=== PATIENT | male | born 1960 | race Caucasian/White ===

== ENCOUNTER 2017-06-10 13:34 | Inpatient (IN) | payer MEDICARE, OTHER ==
[~2017-06-10] VITALS: Ht 175.3 cm; Wt 119.9 kg
[2017-06-10] MEDS ORDERED: LEVO75TA7 PO (13:59)
[2017-06-10] MEDS ORDERED: MIRT15TA PO (13:59)
[2017-06-10] MEDS ORDERED: INSU100V7 SQ (13:59)
[2017-06-10] MEDS ORDERED: PANT40TA2 PO (13:59)
[2017-06-10] MEDS ORDERED: INSU100C (13:59)
[2017-06-10] MEDS ORDERED: DICL100G16 TP (14:00)
[2017-06-10] MEDS ORDERED: SEVE800T8 PO (14:00)
[2017-06-10] MEDS ORDERED: ALBU8HFA4 INH (14:00)
[2017-06-10] MEDS ORDERED: TRAM50TA2 PO (14:00)
[2017-06-10] MEDS ORDERED: SITA50TA PO (14:00)
[2017-06-10] MEDS ORDERED: ZOLP5TAB2 PO (14:00)
[2017-06-10] MEDS ORDERED: REPA1TAB6 PO (14:00)
[2017-06-10] MEDS ORDERED: OXYC10TA49 PO (14:00)
[2017-06-10] MEDS ORDERED: SIMV10TA6 PO (14:00)
[2017-06-10] MEDS ORDERED: FLUT16SP2 (14:00)
[2017-06-10] MEDS ORDERED: NITR0.4T48 SL (14:00)
[2017-06-10] MEDS ORDERED: LORA10CA PO (14:00)
[2017-06-10] MEDS ORDERED: ACET-2605 PO (14:01)
[2017-06-10] MEDS ORDERED: GABA-534 PO (14:01)
[2017-06-10] MEDS ORDERED: METH4TAB PO (14:01)
--- NOTE | 2017-06-10 14:25 | NUR ---
Pt c/o n/v/d for 3 days and ABD pain starting in upper midline and spreading throughout ABD, [id number]. Also c/o slight dizziness after moving bowels. Pt denies CP, SOB, dizziness, no other complaints, no distress noted.
[2017-06-10] MEDS ORDERED: ONDANSETRON 4 MG/2 ML VIAL IV ONE (14:30)
[2017-06-10] MEDS ORDERED: HYDROMORPHONE 1 MG/1 ML DISP.SYRIN IV ONE (14:30)
[2017-06-10] MEDS ORDERED: IV NORMAL SALINE 1000 ML BAG IV ONE (14:30)
[2017-06-10 14:49] LABS: BASOPHILS % (AUTO) 0.6 % (0.0-2.0); EOSINOPHILS # (AUTO) 0.1 K/uL (0.0-0.7); EOSINOPHILS % (AUTO) 1.2 % (0.0-7.0); HEMATOCRIT 43.6 % (40-50); LYMPHOCYTES # (AUTO) 1.5 K/UL (0.8-4.8); LYMPHOCYTES % (AUTO) 26.3 % (20.5-51.5); MEAN CORPUSCULAR HEMOGLOBIN 30.2 UUG (27.0-31.0); MEAN CORPUSCULAR HGB CONC 32 g/dL (32.0-37.0); MEAN CORPUSCULAR VOLUME 93.8 FL (82.0-92.0); MONOCYTES # (AUTO) 0.7 K/UL (0.1-1.30); MONOCYTES % (AUTO) 13.4 % (0.0-11.0); NEUTROPHILS # (AUTO) 3.3 K/UL (1.8-8.9); NEUTROPHILS % (AUTO) 58.5 % (38.5-71.5); PLATELET COUNT (AUTO) 158 K/UL (150-450); RED BLOOD CELL COUNT(AUTO) 4.65 MIL/UL (4.7-6.1); WHITE BLOOD COUNT (AUTO) 5.6 K/UL (4.0-11.2)
[2017-06-10 14:54] LABS: CREATININE 6.1 mg/dL (0.6-1.3); POTASSIUM 4.6 mmol/L (3.5-5.1)
[2017-06-10 15:00] LABS: BILIRUBIN,DIRECT 0.2 mg/dL (0.0-0.2); BILIRUBIN,TOTAL 0.5 mg/dL (0.2-1.0); TOTAL PROTEIN, SERUM 9.1 g/dL (6.4-8.2)
[2017-06-10] MEDS ORDERED: HYDROMORPHONE 1 MG/1 ML DISP.SYRIN ONE (15:11)
[2017-06-10] MEDS ORDERED: ONDANSETRON 4 MG/2 ML VIAL ONE (15:12)
--- NOTE | 2017-06-10 16:27 | NUR ---
Gave report to LUCHO Escobedo. Pt going to CCU bed 2.
--- NOTE | 2017-06-10 16:28 | NUR ---
Full telephone SBAR report received by AUDIO ENGINEERLUCHO Avelar.
--- NOTE | 2017-06-10 17:20 | NUR ---
Pt received from ER awake and alert via pt's motorized wheelchair. Pt stable and nad noted upon admission.
[2017-06-10 17:49] VITALS: BP 73/46
--- NOTE | 2017-06-10 17:55 | NUR ---
Spoke with Dr. Gamez on the telephone. Meds reconciled and reviewed with MD and new admission orders received.
--- NOTE | 2017-06-10 18:10 | NUR ---
Dr. Bianchi in to meet with pt's girlfriend and DPOA as well as with pt's step-sister. Family updated on pt's repeated CT to abdomen and as well as of care plan. Addendum: 06/10/17 at 1821 by ELYSE MEIER RN the above note is meant for another patient. User error.
[2017-06-10] MEDS ORDERED: IV NORMAL SALINE 500 ML IV ONE (18:15)
--- NOTE | 2017-06-10 18:41 | NUR ---
End of shift: Pt resting in bed awake and alert with fall precautions and safety measures maintained. bus driver/monitor and alarms working properly wnl. Call monk within reach and all needs attended.
[2017-06-10] MEDS ORDERED: NITROGLYCERIN 0.4 MG/TAB BOTTLE SL SCH (19:00)
[2017-06-10] MEDS ORDERED: IV NORMAL SALINE 250 ML IV ONE (19:00)
[2017-06-10] MEDS ORDERED: ALBUTEROL SULFATE 8 GM HFA.AER.AD INH SCH (19:00)
[2017-06-10] MEDS ORDERED: ACETAMINOPHEN ES 500 MG TABLET PO SCH (19:00)
[2017-06-10] MEDS: TRAMADOL HCL 50 MG TABLET PO SCH (19:00)
[2017-06-10] MEDS ORDERED: DEXTROSE 50% 50 ML DISP.SYRIN IV PRN (19:30)
--- NOTE | 2017-06-10 19:30 | NUR ---
Report received. Patient AAO, c/o abdominal pain. Assessment done. Home medications discussed with Pharmacist La Nena. Addendum: 06/11/17 at 0021 by REEMA DURAN RN Amended: Links added.
[2017-06-10 20:00] VITALS: BP 101/69
--- NOTE | 2017-06-10 20:00 | NUR ---
Spoke to Dr. Gamez re: patient's abdominal pain and home medications; orders received.
[2017-06-10] MEDS: HYDROMORPHONE 1 MG/1 ML DISP.SYRIN IV PRN (20:18)
--- NOTE | 2017-06-10 20:18 | NUR ---
Medicated with Dialudid IV. Up to BSC with assist. Had loose brown BM; stool specimen obtained for C. diff.
--- NOTE | 2017-06-10 20:20 | NUR ---
Ultram not given; patient was having abdominal pain. for CT of abdomen. CXR tech made aware of order.
[2017-06-10] MEDS: BLOOD SUGAR DIAGNOSTIC 1 EACH STRIP VI SCH (20:46)
--- NOTE | 2017-06-10 20:48 | NUR ---
Albinoaudid effective. Addendum: 06/11/17 at 0048 by REEMA DURAN RN Amended: Links added.
[2017-06-10 21:00] VITALS: BP 113/59
[2017-06-10] MEDS: INSULIN REGULAR, HUMAN 300 UNIT/3 ML VIAL SQ PRN (21:15)
[2017-06-10] MEDS: INSULIN DETEMIR 300 UNIT/3 ML CARTRIDGE SQ SCH (21:15)
--- NOTE | 2017-06-10 21:15 | NUR ---
Had another liquid BM. Placed on contact isolation for C. diff.
[2017-06-10] MEDS: MIRTAZAPINE 15 MG TABLET PO SCH (21:18)
[2017-06-10] MEDS: SIMVASTATIN 10 MG TABLET PO SCH (21:18)
--- NOTE | 2017-06-10 21:30 | NUR ---
Blood drawn for Troponin. Was not drawn at 1800 as lab support tech had difficulty obtaining sample.
--- NOTE | 2017-06-10 21:55 | NUR ---
Results of abnormal Troponin called to Dr. Gamez. Next troponin will be in am. Also advised RN not to call for CT result and that it can be read tomorrow. Tech informed. Addendum: 06/11/17 at 0053 by REEMA DURAN RN Amended: Links added.
[2017-06-10 22:00] VITALS: BP 114/60
--- NOTE | 2017-06-10 22:00 | NUR ---
To CT per bed with continuous RN monitoring. Addendum: 06/11/17 at 0048 by REEMA DURAN RN Amended: Links added.
[2017-06-10] MEDS: ZOLPIDEM 5 MG TABLET PO SCH (22:20)
--- NOTE | 2017-06-10 22:25 | NUR ---
Back from CT with problems.
--- NOTE | 2017-06-10 22:30 | NUR ---
BIPAP settings discussed with RT. Patient's CPAP machine not compatible with RT's set up. Patient advised appropriately.
[2017-06-10 23:00] VITALS: BP 103/60
--- NOTE | 2017-06-10 23:00 | NUR ---
Placed on BIPAP by RT. Patient uses CPAP at home. Settings as follows: rate=15, I/E= 15/5, FIO2=21%. Monitored closely.
[2017-06-10] MEDS: FLUTICASONE PROP NASAL SPRAY 16 GM BOTTLE NS SCH (23:02)
[2017-06-11] VITALS (12 sets, daily range): BP systolic 88–110; BP diastolic 52–74
--- NOTE | 2017-06-11 01:20 | NUR ---
Desaturating. Patient asleep. FIO2 increased to 30% by RT. Addendum: 06/11/17 at 0215 by REEMA DURAN RN Amended: Links added. Addendum: 06/11/17 at 0222 by REEMA DURAN RN Amended: Links added.
--- NOTE | 2017-06-11 04:00 | NUR ---
Sleeping well. NAD noted. Addendum: 06/11/17 at 0631 by REMEA DURAN RN Amended: Links added.
[2017-06-11 05:24] LABS: BASOPHILS % (AUTO) 0.7 % (0.0-2.0); EOSINOPHILS # (AUTO) 0.1 K/uL (0.0-0.7); EOSINOPHILS % (AUTO) 2.4 % (0.0-7.0); HEMATOCRIT 36.8 % (40-50); LYMPHOCYTES # (AUTO) 1.7 K/UL (0.8-4.8); LYMPHOCYTES % (AUTO) 32.1 % (20.5-51.5); MEAN CORPUSCULAR HEMOGLOBIN 30.7 UUG (27.0-31.0); MEAN CORPUSCULAR HGB CONC 33 g/dL (32.0-37.0); MEAN CORPUSCULAR VOLUME 94.2 FL (82.0-92.0); MONOCYTES # (AUTO) 0.8 K/UL (0.1-1.30); MONOCYTES % (AUTO) 14.8 % (0.0-11.0); NEUTROPHILS # (AUTO) 2.8 K/UL (1.8-8.9); PLATELET COUNT (AUTO) 143 K/UL (150-450); RED BLOOD CELL COUNT(AUTO) 3.91 MIL/UL (4.7-6.1); WHITE BLOOD COUNT (AUTO) 5.4 K/UL (4.0-11.2)
[2017-06-11 05:36] LABS: BILIRUBIN,TOTAL 0.4 mg/dL (0.2-1.0); CREATININE 7.2 mg/dL (0.6-1.3); TOTAL PROTEIN, SERUM 7.6 g/dL (6.4-8.2)
[2017-06-11] MEDS ORDERED: INSULIN LISPRO 1000 UNITS/10 ML VIAL(HUMALOG) SQ SCH (07:30)
[2017-06-11] MEDS: LEVOTHYROXINE SODIUM 75 MCG TABLET PO SCH ×2 (07:35→08:25)
[2017-06-11] MEDS: PANTOPRAZOLE SODIUM 40 MG TABLET.DR PO SCH (07:35)
[2017-06-11] MEDS: GABAPENTIN 300 MG CAPSULE PO SCH (07:35)
[2017-06-11] MEDS: REPAGLINIDE 1 MG TABLET PO SCH ×4 (07:36→17:07)
[2017-06-11] MEDS: SEVELAMER CARBONATE 800 MG TABLET PO SCH ×3 (07:38→17:07)
--- NOTE | 2017-06-11 07:50 | NUR ---
PER PT REQUEST TAKEN OFF BIPAP. DOING WELL ON ROOM AIR WITH NO SOB NOTED. RN AWARE.
[2017-06-11] MEDS: LINAGLIPTIN 5 MG TABLET PO SCH (07:55)
[2017-06-11] MEDS: BLOOD SUGAR DIAGNOSTIC 1 EACH STRIP VI SCH ×4 (08:11→20:28)
[2017-06-11] MEDS: HYDROMORPHONE 1 MG/1 ML DISP.SYRIN IV PRN ×4 (08:15→21:56)
--- NOTE | 2017-06-11 08:20 | NUR ---
PO Ultram for this AM held. IV Dilaudid given instead for breakthrough abdominal pain.
[2017-06-11] MEDS: TRAMADOL HCL 50 MG TABLET PO SCH ×3 (08:50→17:10)
[2017-06-11] MEDS ORDERED: VOLTAREN GEL TP SCH (09:00)
[2017-06-11] MEDS ORDERED: methylPREDNISolone 4 MG TABLET PO SCH (09:00)
[2017-06-11] MEDS ORDERED: OXYCODONE HCL 5 MG TABLET PO SCH (09:00)
[2017-06-11] MEDS ORDERED: SITAGLIPTIN PHOSPHATE 50 MG TABLET PO SCH (09:00)
[2017-06-11] MEDS ORDERED: LORATADINE 10 MG TABLET PO SCH (09:00)
--- NOTE | 2017-06-11 09:41 | NUR ---
transport tech here to see pt for dialysis treatment.
[2017-06-11] MEDS ORDERED: ALBUMIN HUMAN 25% 100 ML IV PRN (10:45)
--- NOTE | 2017-06-11 12:17 | NUR ---
Dialysis complete. 1.5L of hemodialysis fluid removed. Pt stable and nad noted upon completion of dialysis treatment.
--- NOTE | 2017-06-11 13:53 | NUR ---
US tech here to see pt for 2D Echocardiogram at the bedside.
--- NOTE | 2017-06-11 15:52 | NUR ---
Spoke with Dr. Lance on the telephone and updated MD on pt's condition. MD stated that it was okay to downgrade pt to telemetry status.
--- NOTE | 2017-06-11 18:25 | NUR ---
Dr. Gamez here to see pt at the bedside. New orders received.
--- NOTE | 2017-06-11 18:44 | NUR ---
End of shift: Pt resting and dozing off in bed with fall precautions and safety measures maintained. civil engineering project manager and alarms working properly wnl. Call monk within reach and all needs attended. Pt stable and nad noted.
--- NOTE | 2017-06-11 19:30 | NUR ---
Report received. Patient AAO, no acute distress noted. Assessment done. Addendum: 06/11/17 at 2153 by REEMA DURAN RN Amended: Links added.
--- NOTE | 2017-06-11 20:00 | NUR ---
Bath given with minimal assistance. Linens changed. Patient stood at side of bed with steady gait. No SOB. Weight dhvzb=429 lbs. Addendum: 06/11/17 at 2301 by REEMA DURAN RN Amended: Links added.
[2017-06-11] MEDS: FLUTICASONE PROP NASAL SPRAY 16 GM BOTTLE NS SCH (20:24)
[2017-06-11] MEDS: SIMVASTATIN 10 MG TABLET PO SCH (20:25)
[2017-06-11] MEDS: MIRTAZAPINE 15 MG TABLET PO SCH (20:25)
[2017-06-11] MEDS: INSULIN REGULAR, HUMAN 300 UNIT/3 ML VIAL SQ PRN (20:31)
[2017-06-11] MEDS: INSULIN DETEMIR 300 UNIT/3 ML CARTRIDGE SQ SCH (20:32)
[2017-06-11] MEDS: ZOLPIDEM 5 MG TABLET PO SCH (22:03)
--- NOTE | 2017-06-11 22:28 | NUR ---
Hysognbps=974. 3 units Humulin R given as coverage. Patient watching TV. Addendum: 06/11/17 at 2253 by REEMA DURAN RN Amended: Links added. Addendum: 06/11/17 at 2301 by REEMA DURAN RN Amended: Links added.
[2017-06-12] VITALS (8 sets, daily range): BP systolic 103–149; BP diastolic 57–86
--- NOTE | 2017-06-12 | NUR ---
Sleeping. Was placed on BIPAP at 2300. VS stable.
[2017-06-12] MEDS: HYDROMORPHONE 1 MG/1 ML DISP.SYRIN IV PRN ×5 (04:52→22:19)
[2017-06-12 05:16] LABS: BASOPHILS % (AUTO) 0.9 % (0.0-2.0); EOSINOPHILS # (AUTO) 0.1 K/uL (0.0-0.7); EOSINOPHILS % (AUTO) 2.2 % (0.0-7.0); HEMATOCRIT 36.3 % (40-50); HEMOGLOBIN 11.9 G/DL (14.0-18.0); LYMPHOCYTES # (AUTO) 1.8 K/UL (0.8-4.8); LYMPHOCYTES % (AUTO) 38.3 % (20.5-51.5); MEAN CORPUSCULAR HEMOGLOBIN 30.9 UUG (27.0-31.0); MEAN CORPUSCULAR HGB CONC 33 g/dL (32.0-37.0); MONOCYTES # (AUTO) 0.7 K/UL (0.1-1.30); MONOCYTES % (AUTO) 14.4 % (0.0-11.0); NEUTROPHILS # (AUTO) 2.1 K/UL (1.8-8.9); NEUTROPHILS % (AUTO) 44.2 % (38.5-71.5); PLATELET COUNT (AUTO) 122 K/UL (150-450); RED BLOOD CELL COUNT(AUTO) 3.86 MIL/UL (4.7-6.1); WHITE BLOOD COUNT (AUTO) 4.7 K/UL (4.0-11.2)
[2017-06-12 05:33] LABS: BILIRUBIN,TOTAL 0.5 mg/dL (0.2-1.0); CREATININE 6.8 mg/dL (0.6-1.3); POTASSIUM 4.3 mmol/L (3.5-5.1); TOTAL PROTEIN, SERUM 7.4 g/dL (6.4-8.2)
[2017-06-12 05:55] LABS: PHOSPHOROUS 8.5 mg/dL (2.5-4.9)
--- NOTE | 2017-06-12 06:30 | NUR ---
Patient AAO, requests to be taken off BIPAP. On room air; sat 98%. Addendum: 06/12/17 at 0720 by REEMA DURAN RN Amended: Links added.
[2017-06-12] MEDS: PANTOPRAZOLE SODIUM 40 MG TABLET.DR PO SCH (06:38)
[2017-06-12] MEDS: BLOOD SUGAR DIAGNOSTIC 1 EACH STRIP VI SCH ×4 (06:41→20:53)
--- NOTE | 2017-06-12 08:08 | NUR ---
Received report and assumed care, assessment done. pt is awake, alert and oriented, complains fo being cold, extra blanket wsa given, also complains of dizziness, pt had received dilaudia earlier, blood sugar was recchecked, previously 74 and pt was given pudding by treer RN, rechecked blood sugar is 104, bp stable, explained findings to pt, he requested a cup of coffee which was given to him and breakfast tray was given.
[2017-06-12] MEDS: SEVELAMER CARBONATE 800 MG TABLET PO SCH ×3 (08:20→18:10)
[2017-06-12] MEDS: GABAPENTIN 300 MG CAPSULE PO SCH (09:07)
[2017-06-12] MEDS: LEVOTHYROXINE SODIUM 75 MCG TABLET PO SCH (09:07)
[2017-06-12] MEDS: LORATADINE 10 MG TABLET PO SCH (09:08)
[2017-06-12] MEDS: TRAMADOL HCL 50 MG TABLET PO SCH ×3 (09:28→17:05)
[2017-06-12] MEDS: LINAGLIPTIN 5 MG TABLET PO SCH (10:08)
--- NOTE | 2017-06-12 12:30 | NUR ---
Rail Car Loader visited, updated on pt's condition, he will order, ct angio and wants it done before dialysis, informed him that dialysis will be done tomorrow, he is ok with ct angio being done tomorrow, Radiology department called unit to inquire about test, informed them that was informed that dialysis is tomorrow and ct before should be done before dialysis
[2017-06-12] MEDS: REPAGLINIDE 1 MG TABLET PO SCH ×2 (12:37→16:24)
[2017-06-12] MEDS: INSULIN REGULAR, HUMAN 300 UNIT/3 ML VIAL SQ PRN (12:40)
[2017-06-12] MEDS: ASPIRIN EC 81 MG TABLET.DR PO SCH (13:27)
--- NOTE | 2017-06-12 15:15 | NUR ---
CT angio explained to pt, verbalized understanding, questionaire completed, consent signed and witness,, ct angio is scheduled for 10am tomorrow, dialysis is aware, will dialysis pt following procedure but no specific time was given. pt is on the phone trying to locate housing, no further complaints of pain
--- NOTE | 2017-06-12 19:24 | NUR ---
Report given to oncoming RN, no significant changes in condition.
--- NOTE | 2017-06-12 19:45 | NUR ---
RECEIVED PT ALERT,ORIENTED,DENIES ANY PAIN AT THIS TIME, VSS,AFEBRILE, LEFT AV FISTULA WITH GOOD THRILL, RIGHT HEPLOCK FLUSHES WELL 20G. SINUS RHYTHM ON MONITOR.NEEDS ATTENDED,CALL LIGHT AT REACHED.
[2017-06-12] MEDS: MIRTAZAPINE 15 MG TABLET PO SCH (20:49)
[2017-06-12] MEDS: SIMVASTATIN 10 MG TABLET PO SCH (20:49)
[2017-06-12] MEDS: FLUTICASONE PROP NASAL SPRAY 16 GM BOTTLE NS SCH (20:49)
[2017-06-12] MEDS: ZOLPIDEM 5 MG TABLET PO SCH ×2 (20:50→21:00)
[2017-06-12] MEDS: INSULIN DETEMIR 300 UNIT/3 ML CARTRIDGE SQ SCH (20:56)
[2017-06-12] MEDS ORDERED: GOLYTELY 4000 ML BOTTLE PO ONE (21:30)
--- NOTE | 2017-06-12 21:59 | NUR ---
DR. CAMPUZANO CAME AND SAW PT, DISCUSS PLAN EGD AND COLONOSCOPY IN AM AFTER CT. BOWEL PREP STARTED ,GOLYTELY 4LITERS TO DRINK UNTIL BM CLEAR. PT SIGNED CONSENT.
[2017-06-13] MEDS: ONDANSETRON 4 MG/2 ML VIAL IV PRN (01:39)
[2017-06-13] MEDS: HYDROMORPHONE 1 MG/1 ML DISP.SYRIN IV PRN ×6 (02:15→23:12)
[2017-06-13 04:14] VITALS: BP 150/84
--- NOTE | 2017-06-13 05:36 | NUR ---
PT ALERT,ORIENTED, AMBULATORY, STILL HAVING ABDOMINAL PAIN AT RIGHT LOWER QUADRANT, COMPLETED 4 LITERS OF GOLYTELY AND BM ALL NIGHT. BM STILL BROWN NOT YET CLEAR.WILL NOTIFY MD IN AM.NOT SLEEPING DUE TO ALMOST EVERY HR BM.USES COMMODE.VSS,AFEBRILE, SINUS RHYTHM ON MONITOR. PLANNED CT ANGIO THEN EGD, COLONOSCOPY THEN HEMODIALYSIS AFTER. WILL CONTINUE TO MONITOR,CAA LIGHT AT REACHED.
[2017-06-13] MEDS: BLOOD SUGAR DIAGNOSTIC 1 EACH STRIP VI SCH ×4 (06:42→21:26)
[2017-06-13] MEDS: PANTOPRAZOLE SODIUM 40 MG TABLET.DR PO SCH (06:44)
[2017-06-13] MEDS ORDERED: IOHEXOL 350 100 ML INFUS..BTL ONE (07:06)
[2017-06-13] MEDS ORDERED: IV NORMAL SALINE 250 ML IV ONE (07:06)
[2017-06-13] MEDS ORDERED: IV NORMAL SALINE 1000 ML BAG IV ONE (07:08)
[2017-06-13] MEDS ORDERED: PROPOFOL 200 MG/20 ML BOTTLE IV ONE (07:08)
[2017-06-13] MEDS ORDERED: LIDOCAINE HCL 1% 20 ML VIAL MC ONE (07:08)
[2017-06-13] MEDS: REPAGLINIDE 1 MG TABLET PO SCH ×3 (07:30→17:13)
[2017-06-13 08:00] VITALS: BP 136/71
[2017-06-13] MEDS ORDERED: FLEET ENEMA 133 ML BOTTLE RC ONE ×2 (08:00→10:00)
[2017-06-13] MEDS: SEVELAMER CARBONATE 800 MG TABLET PO SCH ×3 (08:00→17:12)
[2017-06-13 08:02] LABS: BASOPHILS % (AUTO) 0.6 % (0.0-2.0); EOSINOPHILS # (AUTO) 0.1 K/uL (0.0-0.7); EOSINOPHILS % (AUTO) 1.8 % (0.0-7.0); HEMOGLOBIN 11.8 G/DL (14.0-18.0); LYMPHOCYTES # (AUTO) 1.7 K/UL (0.8-4.8); LYMPHOCYTES % (AUTO) 28.9 % (20.5-51.5); MEAN CORPUSCULAR HEMOGLOBIN 31.3 UUG (27.0-31.0); MEAN CORPUSCULAR HGB CONC 34 g/dL (32.0-37.0); MEAN CORPUSCULAR VOLUME 92.7 FL (82.0-92.0); MONOCYTES # (AUTO) 0.6 K/UL (0.1-1.30); MONOCYTES % (AUTO) 10.5 % (0.0-11.0); NEUTROPHILS # (AUTO) 3.6 K/UL (1.8-8.9); NEUTROPHILS % (AUTO) 58.2 % (38.5-71.5); PLATELET COUNT (AUTO) 125 K/UL (150-450); RED BLOOD CELL COUNT(AUTO) 3.77 MIL/UL (4.7-6.1)
--- NOTE | 2017-06-13 08:15 | NUR ---
Dr. Castrejon in the unit to assess patient; report given.
[2017-06-13 08:20] LABS: BILIRUBIN,TOTAL 0.5 mg/dL (0.2-1.0); POTASSIUM 5.3 mmol/L (3.5-5.1); TOTAL PROTEIN, SERUM 7.4 g/dL (6.4-8.2)
--- NOTE | 2017-06-13 08:30 | NUR ---
At this time patient taken down for CT angio as ordered. vitals signs stable no c/of pain, taken down via wheelchair by iv technician.
--- NOTE | 2017-06-13 08:51 | NUR ---
Patient back from procedure, with vitals stable no c/of pain saturation above 95%. but requesting to be placed back on CPAP.
[2017-06-13 08:52] LABS: CREATININE 8.3 mg/dL (0.6-1.3); PHOSPHOROUS 9.6 mg/dL (2.5-4.9)
[2017-06-13] MEDS: GABAPENTIN 300 MG CAPSULE PO SCH (09:00)
[2017-06-13] MEDS: LORATADINE 10 MG TABLET PO SCH (09:00)
[2017-06-13] MEDS: TRAMADOL HCL 50 MG TABLET PO SCH ×3 (09:00→17:16)
[2017-06-13] MEDS: LEVOTHYROXINE SODIUM 75 MCG TABLET PO SCH (09:00)
[2017-06-13] MEDS: ASPIRIN EC 81 MG TABLET.DR PO SCH (09:00)
[2017-06-13] MEDS: LINAGLIPTIN 5 MG TABLET PO SCH (09:00)
--- NOTE | 2017-06-13 09:44 | NUR ---
a call to Dr. Genevieve COLLINS to notify him that patient still not clear for procedure. Orders received.
--- NOTE | 2017-06-13 11:35 | NUR ---
At this time patient oyster picker for scheduled EGD report given to ammy Yung. vitals signs stable medicated for pain as requested by patient.
[2017-06-13] MEDS ORDERED: METOCLOPRAMIDE HCL 10 MG/2 ML VIAL IV ONE (12:01)
--- NOTE | 2017-06-13 12:39 | NUR ---
medications schedule for this time not given pt. out of the unit for procedure.
[2017-06-13 13:30] VITALS: BP 155/73
--- NOTE | 2017-06-13 13:30 | NUR ---
At this time patient back from procedure, vitals signs stable. snacks and juice provided as ordered blood sugar of 94 obtained. Patient AAOX4. and report received from ammy Medina.
--- NOTE | 2017-06-13 14:40 | NUR ---
computer patternmaker in the unit.
[2017-06-13 16:00] VITALS: BP 123/60
--- NOTE | 2017-06-13 17:00 | NUR ---
dialysis done at this time and as reported a total of 2 liters removed. Patient tolerated procedure well.
[2017-06-13] MEDS: INSULIN REGULAR, HUMAN 300 UNIT/3 ML VIAL SQ PRN ×2 (17:19→21:30)
--- NOTE | 2017-06-13 19:30 | NUR ---
Awake, alert, pleasant, watching TV. States has had a busy day full of procedures and is feeling fatigued. Resp even and regular. Excellent sats on room air. Stable rhythm and VS. PM care self rendered with some assistance. Expressing relief from Dilaudid received earlier for abd. pain. Continues to rest.
[2017-06-13 20:00] VITALS: BP 149/87
[2017-06-13] MEDS: MIRTAZAPINE 15 MG TABLET PO SCH (21:27)
[2017-06-13] MEDS: SIMVASTATIN 10 MG TABLET PO SCH (21:27)
[2017-06-13] MEDS: ZOLPIDEM 5 MG TABLET PO SCH (21:27)
[2017-06-13] MEDS: INSULIN DETEMIR 300 UNIT/3 ML CARTRIDGE SQ SCH (21:29)
[2017-06-13] MEDS: FLUTICASONE PROP NASAL SPRAY 16 GM BOTTLE NS SCH (21:31)
--- NOTE | 2017-06-13 23:15 | NUR ---
Enjoyed HS snacks. Medicated with IV Dilaudid for abd. pain episode, with adequate relief. Nursing comfort measures observed at all times.
--- NOTE | 2017-06-13 23:39 | NUR ---
Pt placed on Respironics V60 at this time per orders/pt request for NOC. Pt place on BIPAP settings IPAP 15, EPAP 5, set respiratory rate 15 and FIO2-30%. No resp. distress noted at this time. Pt to be monitored throughout the shift. V60 alarm parameters have been checked and remain audible at this time.
[2017-06-13 23:59] VITALS: BP 143/68
--- NOTE | 2017-06-14 02:30 | NUR ---
Pt has been sleeping soundly. Remains on BiPap and sats are excellent. In no apparent acute distress.
[2017-06-14] MEDS: HYDROMORPHONE 1 MG/1 ML DISP.SYRIN IV PRN ×5 (02:59→20:02)
--- NOTE | 2017-06-14 03:30 | NUR ---
Awakened by another abd. pain episode; IV Dilaudid was given, with adequate relief. Continues to sleep.
[2017-06-14 05:00] VITALS: BP 150/82
--- NOTE | 2017-06-14 05:08 | NUR ---
Pt remains on V60 at this time with no changes made to the settings. No resp. distress noted throughout the shift. Pt was routinely monitored throughout the shift and remains on BIPAP at this time. BVM at bedside. V60 alarm parameters have been checked and remain audible
--- NOTE | 2017-06-14 05:30 | NUR ---
Off BiPap and placed on room air per pt request. c/o feeling hungry; snacks given and pt enjoyed. In good spirits this AM stating feels well rested.
[2017-06-14 05:31] LABS: BILIRUBIN,TOTAL 0.6 mg/dL (0.2-1.0); POTASSIUM 4.8 mmol/L (3.5-5.1); TOTAL PROTEIN, SERUM 7.7 g/dL (6.4-8.2)
[2017-06-14 05:35] LABS: BASOPHILS % (AUTO) 0.4 % (0.0-2.0); EOSINOPHILS # (AUTO) 0.1 K/uL (0.0-0.7); EOSINOPHILS % (AUTO) 1.7 % (0.0-7.0); HEMATOCRIT 34.8 % (40-50); HEMOGLOBIN 11.6 G/DL (14.0-18.0); LYMPHOCYTES # (AUTO) 1.5 K/UL (0.8-4.8); LYMPHOCYTES % (AUTO) 27.7 % (20.5-51.5); MEAN CORPUSCULAR HEMOGLOBIN 30.8 UUG (27.0-31.0); MEAN CORPUSCULAR HGB CONC 33 g/dL (32.0-37.0); MEAN CORPUSCULAR VOLUME 92.8 FL (82.0-92.0); MONOCYTES # (AUTO) 0.5 K/UL (0.1-1.30); MONOCYTES % (AUTO) 10.1 % (0.0-11.0); NEUTROPHILS # (AUTO) 3.2 K/UL (1.8-8.9); NEUTROPHILS % (AUTO) 60.1 % (38.5-71.5); PLATELET COUNT (AUTO) 120 K/UL (150-450); RED BLOOD CELL COUNT(AUTO) 3.75 MIL/UL (4.7-6.1); WHITE BLOOD COUNT (AUTO) 5.3 K/UL (4.0-11.2)
[2017-06-14 05:43] LABS: CREATININE 7.6 mg/dL (0.6-1.3)
[2017-06-14] MEDS: PANTOPRAZOLE SODIUM 40 MG TABLET.DR PO SCH (06:14)
--- NOTE | 2017-06-14 06:58 | NUR ---
Given another IV Dilaudid dose for abdominal pain. States when this pain arises when not in hospital, pt usually ambulates several yards for relief. RN Legislative Director aware of pt's tele status in CCU.
--- NOTE | 2017-06-14 07:30 | NUR ---
Report received.Pt remains awake,alert,oriented.Denies pain,discomfort.On room air,tolerated well.No SOB noted.SR on monitor.AV fistula on Left arm with bruit /thrill present.Pt tolerated breakfast well.Will continue to monitor.
[2017-06-14] MEDS: BLOOD SUGAR DIAGNOSTIC 1 EACH STRIP VI SCH ×4 (07:48→20:27)
[2017-06-14 08:00] VITALS: BP 147/78
[2017-06-14] MEDS: GABAPENTIN 300 MG CAPSULE PO SCH (08:05)
[2017-06-14] MEDS: ASPIRIN EC 81 MG TABLET.DR PO SCH (08:06)
[2017-06-14] MEDS: SEVELAMER CARBONATE 800 MG TABLET PO SCH ×3 (08:06→17:06)
[2017-06-14] MEDS: LINAGLIPTIN 5 MG TABLET PO SCH (08:07)
[2017-06-14] MEDS: TRAMADOL HCL 50 MG TABLET PO SCH ×3 (08:07→16:25)
[2017-06-14] MEDS: LEVOTHYROXINE SODIUM 75 MCG TABLET PO SCH (08:07)
[2017-06-14] MEDS: LORATADINE 10 MG TABLET PO SCH (08:07)
[2017-06-14] MEDS: REPAGLINIDE 1 MG TABLET PO SCH ×3 (08:08→16:12)
--- NOTE | 2017-06-14 08:40 | NUR ---
Seen,examined by .
[2017-06-14] MEDS ORDERED: NAPHAZOLINE/PHENIR OPHT DROP 15 ML BOTTLE EACHEYE PRN (09:00)
--- NOTE | 2017-06-14 10:55 | NUR ---
Pt c/o abdominal pain.Medicated with Dilaudid 0.5 mg IV.Will continue to monitor.
[2017-06-14] MEDS: INSULIN REGULAR, HUMAN 300 UNIT/3 ML VIAL SQ PRN (11:54)
[2017-06-14 12:00] VITALS: BP 140/77
--- NOTE | 2017-06-14 13:30 | NUR ---
PT TRANSFER TO ROOM 210 VIA WHEELCHAIR.REPORT GIVEN TO LUCHO.
[2017-06-14 13:58] VITALS: BP 137/74
--- NOTE | 2017-06-14 13:59 | NUR ---
PT IN ROOM 210, SR ON TELE. IV INTACT AND PATENT. VS STABLE, ORIENTED TO ROOM, CALL LIGHT IN REACH, WILL CONTINUE TO MONITOR
--- NOTE | 2017-06-14 16:00 | NUR ---
PATIENT COMPLAINT OF ACHING ABDOMINAL PAIN 08/13. gICEN 0.5 MG IV DILAUDID.
--- NOTE | 2017-06-14 16:26 | NUR ---
PATIENT'S BLOOD SUGAR IS 77 MG/DL AT 1430 HRS, GIVEN SNACKS. ULTRAM HELS, PT JUST GOT 0.5 MG DOSE OF DILAUDID DOCUMENTED PAIN LESSEN FR 10 TO 4.
--- NOTE | 2017-06-14 18:48 | NUR ---
PATIENT IS COMFORTABLE IN BED. BLOOD SUGAR OF 97 MG/DL AFTER SNACKS NO MORE FEELING OF SHAKINESS. DINNER HAS BEEN SERVED AND ATE. NO FURTHER COMPLAINT AT THIS TIME.
--- NOTE | 2017-06-14 19:50 | NUR ---
PT IS ALERT AND RESPONSIVE, RESTING COMFORTABLY IN BED. RESP IS EVEN AND UNLABORED. NO SOB. IV IS PATENT AND INTACT. CALL LIGHT WITHIN REACH. WILL CONT TO MONITOR.
[2017-06-14] MEDS: MIRTAZAPINE 15 MG TABLET PO SCH (20:27)
[2017-06-14] MEDS: SIMVASTATIN 10 MG TABLET PO SCH (20:27)
[2017-06-14] MEDS: ZOLPIDEM 5 MG TABLET PO SCH (20:28)
[2017-06-14] MEDS: INSULIN DETEMIR 300 UNIT/3 ML CARTRIDGE SQ SCH (20:29)
[2017-06-14] MEDS: FLUTICASONE PROP NASAL SPRAY 16 GM BOTTLE NS SCH (20:30)
[2017-06-14 21:00] VITALS: BP 158/74
[2017-06-15 06:07] LABS: HEPATITIS B SURFACE AB Reactive (.); HEPATITIS B SURFACE AG Negative (Negative)
[2017-06-15] MEDS: REPAGLINIDE 1 MG TABLET PO SCH ×3 (06:35→17:15)
[2017-06-15] MEDS: PANTOPRAZOLE SODIUM 40 MG TABLET.DR PO SCH (06:35)
[2017-06-15] MEDS: BLOOD SUGAR DIAGNOSTIC 1 EACH STRIP VI SCH ×4 (06:37→20:59)
[2017-06-15 06:56] LABS: BASOPHILS % (AUTO) 0.5 % (0.0-2.0); EOSINOPHILS % (AUTO) 1.1 % (0.0-7.0); HEMATOCRIT 34.3 % (40-50); HEMOGLOBIN 11.2 G/DL (14.0-18.0); LYMPHOCYTES # (AUTO) 1.3 K/UL (0.8-4.8); MEAN CORPUSCULAR HEMOGLOBIN 30.2 UUG (27.0-31.0); MEAN CORPUSCULAR HGB CONC 33 g/dL (32.0-37.0); MEAN CORPUSCULAR VOLUME 92.3 FL (82.0-92.0); MONOCYTES # (AUTO) 0.5 K/UL (0.1-1.30); MONOCYTES % (AUTO) 11.7 % (0.0-11.0); NEUTROPHILS # (AUTO) 2.2 K/UL (1.8-8.9); NEUTROPHILS % (AUTO) 53.7 % (38.5-71.5); PLATELET COUNT (AUTO) 106 K/UL (150-450); RED BLOOD CELL COUNT(AUTO) 3.71 MIL/UL (4.7-6.1)
[2017-06-15 06:58] LABS: BILIRUBIN,TOTAL 0.5 mg/dL (0.2-1.0); MAGNESIUM 2.1 mg/dL (1.8-2.4); POTASSIUM 5.4 mmol/L (3.5-5.1)
--- NOTE | 2017-06-15 06:59 | NUR ---
PT IN BED, COMFORTABLY LAYING IN BED. RESP IS EVEN AN UNLABORED. NO SOB. SLEPT WITH BI PAP WELL THROUGH THE NIGHT. SR ON TELE, PAIN MANAGED WITH PRN MEDICATIONS. CALL LIGHT WITHIN REACH. WILL CONT TO MONITOR.
[2017-06-15 07:08] LABS: CREATININE 9.4 mg/dL (0.6-1.3); PHOSPHOROUS 9.4 mg/dL (2.5-4.9)
--- NOTE | 2017-06-15 07:22 | NUR ---
RECEIVED CRITICAL LABS FOR CREATININE AND PHOSPHOROUS, AM NURSE AWARE AND PER AM NURSE WILL REPORT TO MD. PT IS NO APPARENT DISTRESS. VSS AT THIS TIME.
--- NOTE | 2017-06-15 08:30 | NUR ---
AWAKE ALERT NO SOB STATE PAIN MED HELP TO RELEF PAIN WELL RA O2 SAT 94% NO RESPIRATORY DISTRESS ON FALL PRECAUTION CALL SWARTZ IN REACH
[2017-06-15] MEDS: TRAMADOL HCL 50 MG TABLET PO SCH ×3 (09:00→17:16)
[2017-06-15] MEDS: HYDROMORPHONE 1 MG/1 ML DISP.SYRIN IV PRN ×4 (09:08→22:17)
[2017-06-15] MEDS: LEVOTHYROXINE SODIUM 75 MCG TABLET PO SCH (09:09)
[2017-06-15] MEDS: LORATADINE 10 MG TABLET PO SCH (09:09)
[2017-06-15] MEDS: LINAGLIPTIN 5 MG TABLET PO SCH (09:09)
[2017-06-15] MEDS: ASPIRIN EC 81 MG TABLET.DR PO SCH (09:09)
[2017-06-15] MEDS: GABAPENTIN 300 MG CAPSULE PO SCH (09:09)
[2017-06-15] MEDS: SEVELAMER CARBONATE 800 MG TABLET PO SCH ×3 (09:09→17:15)
--- NOTE | 2017-06-15 11:00 | NUR ---
DR MANCUSO HERE SEE PT AND LAB RESULT INFORM NEW ORDER FOR HD TODAY
[2017-06-15 11:02] VITALS: BP 148/75
--- NOTE | 2017-06-15 13:00 | NUR ---
START HD TODAY EVERARDO PROCEDURE WELL RESTING PAIN MED GIVEN REQUEST
[2017-06-15 15:16] VITALS: BP 132/71
--- NOTE | 2017-06-15 15:30 | NUR ---
HD FINISHED TAKE OUT 2500ML VS STABLE RESTING
[2017-06-15] MEDS: INSULIN REGULAR, HUMAN 300 UNIT/3 ML VIAL SQ PRN (17:18)
--- NOTE | 2017-06-15 17:30 | NUR ---
STABLE HEMODYNAMIC ,PAIN UNDER CONTROL SAFETY MEASURE PROVIDED CALL SWARTZ IN REACH
[2017-06-15 20:00] VITALS: BP 143/65
[2017-06-15] MEDS: MIRTAZAPINE 15 MG TABLET PO SCH (20:53)
[2017-06-15] MEDS: SIMVASTATIN 10 MG TABLET PO SCH (20:54)
[2017-06-15] MEDS: ZOLPIDEM 5 MG TABLET PO SCH (20:54)
[2017-06-15] MEDS: FLUTICASONE PROP NASAL SPRAY 16 GM BOTTLE NS SCH (20:54)
[2017-06-15] MEDS: INSULIN DETEMIR 300 UNIT/3 ML CARTRIDGE SQ SCH (20:58)
[2017-06-16] MEDS: HYDROMORPHONE 1 MG/1 ML DISP.SYRIN IV PRN ×5 (02:59→20:26)
[2017-06-16 05:06] VITALS: BP 144/69
[2017-06-16] MEDS: PANTOPRAZOLE SODIUM 40 MG TABLET.DR PO SCH (07:07)
[2017-06-16] MEDS: BLOOD SUGAR DIAGNOSTIC 1 EACH STRIP VI SCH ×4 (07:09→20:42)
[2017-06-16] MEDS: ASPIRIN EC 81 MG TABLET.DR PO SCH (08:10)
[2017-06-16] MEDS: LORATADINE 10 MG TABLET PO SCH (08:10)
[2017-06-16] MEDS: LINAGLIPTIN 5 MG TABLET PO SCH (08:10)
[2017-06-16] MEDS: GABAPENTIN 300 MG CAPSULE PO SCH (08:10)
[2017-06-16] MEDS: SEVELAMER CARBONATE 800 MG TABLET PO SCH ×3 (08:10→17:19)
[2017-06-16] MEDS: REPAGLINIDE 1 MG TABLET PO SCH ×3 (08:10→17:19)
[2017-06-16] MEDS: TRAMADOL HCL 50 MG TABLET PO SCH ×3 (08:11→17:19)
[2017-06-16] MEDS: LEVOTHYROXINE SODIUM 75 MCG TABLET PO SCH (08:15)
--- NOTE | 2017-06-16 09:00 | NUR ---
RESTING QUIET NO SOB EAT BREAKFAST WELL PAIN UNDER CONTROL CALL LIGHT WITHIN REACH
[2017-06-16 11:10] VITALS: BP 137/64
--- NOTE | 2017-06-16 12:00 | NUR ---
BLOOD SUGAR WAS 69 STATE FEEL OK GIVEN AJ AND SNACK AND EAT LUNCH WELL AFTER NO S/S OF HYPOGLYCEMIA
[2017-06-16 15:17] VITALS: BP 156/75
--- NOTE | 2017-06-16 17:20 | NUR ---
RESTING WELL IN BED ,PAIN UNDER CONTROL NO RESPIRATORY DISTRESS SAFETY MEASURE PROVIDED CALL LIGHT WITHIN REACH
[2017-06-16 20:00] VITALS: BP 156/79
--- NOTE | 2017-06-16 20:25 | NUR ---
PT'S A/A/O X4,C/O BACK PAIN AND STATED THAT"I NEED DILAUDID FOR MY BACK PAIN";PAIL LEVEL'S 08/13
--- NOTE | 2017-06-16 20:25 | NUR ---
PT'S A/A/O X4,C/O BACK PAIN 08/13;STATED THAT " I NEED DILAUDID FOR MY BACK PAIN";DILAUDID 0.5 MG IVP X1;EDUCATED TO PT;HE VERBALIZED UNDERSTANDING AND COOPERATIVE NOTED.KEPT COMFORT.CALL-LIGHT WITHIN REACH.
[2017-06-16] MEDS: MIRTAZAPINE 15 MG TABLET PO SCH (20:56)
[2017-06-16] MEDS: SIMVASTATIN 10 MG TABLET PO SCH (20:56)
[2017-06-16] MEDS: FLUTICASONE PROP NASAL SPRAY 16 GM BOTTLE NS SCH (20:56)
[2017-06-16] MEDS: ZOLPIDEM 5 MG TABLET PO SCH (20:56)
[2017-06-16] MEDS: INSULIN DETEMIR 300 UNIT/3 ML CARTRIDGE SQ SCH (20:57)
--- NOTE | 2017-06-16 21:00 | NUR ---
CHECKED BS TONIGHT;IT'S 81 MG/DL;PT DENIED OF ANY S/S OF HYPO-HYPERGLYCEMIA BUT PT REFUSED TO GET ANY OF INSULIN TONIGHT;SNACK'S GIVEN TO PT REQUEST;PT TOLERATED WELL NOTED.PT STATED MY BACK'S BETTER.KEPT COMFORT.CALL-LIGHT WITHIN REACH.CONTINUED MONITORING TO PT.
[2017-06-16] MEDS: ONDANSETRON 4 MG/2 ML VIAL IV PRN (23:37)
[2017-06-17] MEDS: HYDROMORPHONE 1 MG/1 ML DISP.SYRIN IV PRN ×6 (00:42→21:51)
[2017-06-17 05:14] VITALS: BP 166/86
[2017-06-17] MEDS: PANTOPRAZOLE SODIUM 40 MG TABLET.DR PO SCH (06:17)
[2017-06-17] MEDS: BLOOD SUGAR DIAGNOSTIC 1 EACH STRIP VI SCH ×4 (06:50→20:35)
--- NOTE | 2017-06-17 06:50 | NUR ---
PT SLEPT ON/OFF IN THE SHIFT.@ 06:30 CHECKED BS'S 65 MG/DL;06:35GAVE APPLE JUICE AND CRACKERS TO PT AT THIS TIME;EDUCATED TO PT,HE VERBALIZED UNDERSTANDING AND TOLERATED WELL NOTED. @ 06:50 REPEATED BS'S 77 MG/DL;PT STATED THAT HE FELT BETTER AND WANTED TO WAIT FOR BREAKFAST THIS MORNING.KEPT CALL-LIGHT WITHIN REACH.CONTINUED MONITORING TO PT,WILL ENDORSE TO AM NURSE TO CONTINUE CARE.
--- NOTE | 2017-06-17 07:00 | NUR ---
Pt is sleeping comfortably. Pt is complaining of pain, will medicate accordingly. No s/s of respiratory distress noted. All safety needs are met. No s/s of hypoglycemia. Iv intact/patent. Will continue to monitor.
[2017-06-17] MEDS: REPAGLINIDE 1 MG TABLET PO SCH ×3 (08:20→17:15)
[2017-06-17] MEDS: SEVELAMER CARBONATE 800 MG TABLET PO SCH ×3 (08:21→17:17)
[2017-06-17] MEDS: LINAGLIPTIN 5 MG TABLET PO SCH (08:22)
[2017-06-17] MEDS: LEVOTHYROXINE SODIUM 75 MCG TABLET PO SCH (08:22)
[2017-06-17] MEDS: ASPIRIN EC 81 MG TABLET.DR PO SCH (08:22)
[2017-06-17] MEDS: GABAPENTIN 300 MG CAPSULE PO SCH (08:22)
[2017-06-17] MEDS: TRAMADOL HCL 50 MG TABLET PO SCH ×3 (08:23→17:15)
[2017-06-17] MEDS: LORATADINE 10 MG TABLET PO SCH (08:23)
[2017-06-17] MEDS ORDERED: SEVE800T7 PO (09:52)
[2017-06-17] MEDS ORDERED: LINA5TAB PO (09:52)
[2017-06-17 11:20] VITALS: BP 148/72
--- NOTE | 2017-06-17 15:54 | NUR ---
PT'S CBP IS IN 170'S, PAGED DR MANCUSO TO GET PRN BP MED OR ANY OTHER ORDER APPROPRIATE
[2017-06-17 16:05] VITALS: BP 171/88
--- NOTE | 2017-06-17 19:36 | NUR ---
NO CHANGES NOTED. ALL SAFETY NEEDS ARE MET.
--- NOTE | 2017-06-17 19:40 | NUR ---
PT RECEIVED IN BED, AWAKE. A/OX4. ABLE TO MAKE NEEDS KNOWN. IN NO ACUTE DISTRESS. DOES NOT COMPLAIN OF PAIN AT THIS TIME. SAFETY MEASURES IMPLEMENTED. CALL LIGHT WITHIN REACH.
[2017-06-17] MEDS: ZOLPIDEM 5 MG TABLET PO SCH (20:35)
[2017-06-17] MEDS: SIMVASTATIN 10 MG TABLET PO SCH (20:36)
[2017-06-17] MEDS: MIRTAZAPINE 15 MG TABLET PO SCH (20:36)
[2017-06-17] MEDS: FLUTICASONE PROP NASAL SPRAY 16 GM BOTTLE NS SCH (20:36)
[2017-06-17] MEDS: INSULIN DETEMIR 300 UNIT/3 ML CARTRIDGE SQ SCH (20:37)
[2017-06-17 20:43] VITALS: BP 133/82
--- NOTE | 2017-06-18 00:53 | NUR ---
PT C/O SHAKING AND SWEATING. ACCUCHECK 69. PROVIDED ORANGE JUICE AND JR CRACKERS. WILL CONTINUE TO MONITOR
[2017-06-18] MEDS: HYDROMORPHONE 1 MG/1 ML DISP.SYRIN IV PRN ×5 (02:00→20:21)
[2017-06-18 05:14] VITALS: BP 155/68
[2017-06-18] MEDS: PANTOPRAZOLE SODIUM 40 MG TABLET.DR PO SCH (06:01)
[2017-06-18] MEDS: BLOOD SUGAR DIAGNOSTIC 1 EACH STRIP VI SCH ×4 (06:06→20:27)
[2017-06-18] MEDS: ACETAMINOPHEN ES 500 MG TABLET PO PRN ×2 (06:13→13:06)
--- NOTE | 2017-06-18 06:36 | NUR ---
END OF SHIFT NOTES. PT SLEPT INTERMITTENTLY THROUGHOUT SHIFT. IN NO ACUTE DISTRESS. PAIN MANAGED. PAIN MEDICATION ADMINISTERED ORDERED. PT BS MAINTAINED WNL. C/O SORE THROAT. ADMINISTERED TYLENOL ORDERED. SAFETY MAINTAINED. CALL LIGHT WITHIN REACH
[2017-06-18] MEDS: REPAGLINIDE 1 MG TABLET PO SCH ×3 (08:25→16:37)
[2017-06-18] MEDS: LINAGLIPTIN 5 MG TABLET PO SCH (08:35)
[2017-06-18] MEDS: SEVELAMER CARBONATE 800 MG TABLET PO SCH ×3 (08:35→17:15)
[2017-06-18] MEDS: LEVOTHYROXINE SODIUM 75 MCG TABLET PO SCH (08:36)
[2017-06-18] MEDS: GABAPENTIN 300 MG CAPSULE PO SCH (08:36)
[2017-06-18] MEDS: LORATADINE 10 MG TABLET PO SCH (08:36)
[2017-06-18] MEDS: ASPIRIN EC 81 MG TABLET.DR PO SCH (08:36)
[2017-06-18] MEDS: TRAMADOL HCL 50 MG TABLET PO SCH ×3 (08:36→17:15)
--- NOTE | 2017-06-18 10:51 | NUR ---
Regular diet per Dr Chavarria Addendum: 06/18/17 at 1740 by SEBAS PEREIRA RN WRONG PT
--- NOTE | 2017-06-18 10:55 | NUR ---
Pt wants to have the kind of walker where she can sit on it, per the pt "my insurance will cover it". [facility] brought in a walker but pt doesnt like it "return it back". Removed the Hassan, pt was able to urinate promptly. Addendum: 06/18/17 at 1737 by SEBAS PEREIRA RN WRONG PT.
[2017-06-18 11:55] VITALS: BP 145/75
--- NOTE | 2017-06-18 15:04 | NUR ---
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 SM/SW to follow up.
[2017-06-18 15:39] VITALS: BP 161/78
[2017-06-18] MEDS: ONDANSETRON 4 MG/2 ML VIAL IV PRN (15:59)
[2017-06-18] MEDS: ALBUTEROL SULFATE 2.5 MG/3 ML NEBU NEB PRN (16:10)
[2017-06-18] MEDS: GUAIFENESIN/DEXTROMETHORPHAN 5 ML UDC PO PRN (16:37)
--- NOTE | 2017-06-18 17:39 | NUR ---
PT IS COUGHING, ADVISED DR. PERSAUD. Addendum: 06/18/17 at 1739 by SEBAS PEREIRA RN PT HAS PRODUCTIVE COUGH, IS AWARE
--- NOTE | 2017-06-18 18:58 | NUR ---
PT IS SLEEPING IN BED COMFORTABLY. NO S/S OF RESPIRATORY DISTRESS NOTED. 02 SAT WAS CHECKED, PT IS 96% ON RA. PT NOTED TO BE COUGHING OCCASIONALLY. NO S/S OF PAIN NOTED. ALL SAFETY NEEDS ARE MET. IV INTACT/PATENT.
[2017-06-18 19:00] VITALS: BP 120/78
[2017-06-18] MEDS: SIMVASTATIN 10 MG TABLET PO SCH (20:21)
[2017-06-18] MEDS: MIRTAZAPINE 15 MG TABLET PO SCH (20:21)
[2017-06-18] MEDS: INSULIN DETEMIR 300 UNIT/3 ML CARTRIDGE SQ SCH (20:29)
[2017-06-18] MEDS: FLUTICASONE PROP NASAL SPRAY 16 GM BOTTLE NS SCH (20:30)
[2017-06-18] MEDS: ZOLPIDEM 5 MG TABLET PO SCH (21:00)
[2017-06-19] MEDS: HYDROMORPHONE 1 MG/1 ML DISP.SYRIN IV PRN ×2 (00:22→04:32)
[2017-06-19 04:00] VITALS: BP 152/74
[2017-06-19] MEDS ORDERED: HYDROMORPHONE 2 MG/1 ML DISP.SYRIN ONE (04:43)
[2017-06-19] MEDS: PANTOPRAZOLE SODIUM 40 MG TABLET.DR PO SCH (06:01)
[2017-06-19] MEDS: BLOOD SUGAR DIAGNOSTIC 1 EACH STRIP VI SCH ×4 (06:42→20:58)
--- NOTE | 2017-06-19 06:47 | NUR ---
continue to have abdominal pain ,get dilaudid 0.5mg ivp, sleeps with his bipap, no acute distress,will continue to monitor,vss,afebrile.
[2017-06-19] MEDS: GABAPENTIN 300 MG CAPSULE PO SCH (08:09)
[2017-06-19] MEDS: ASPIRIN EC 81 MG TABLET.DR PO SCH (08:09)
[2017-06-19] MEDS: SEVELAMER CARBONATE 800 MG TABLET PO SCH ×4 (08:09→17:22)
[2017-06-19] MEDS: LORATADINE 10 MG TABLET PO SCH (08:09)
[2017-06-19] MEDS: LINAGLIPTIN 5 MG TABLET PO SCH (08:09)
[2017-06-19] MEDS: REPAGLINIDE 1 MG TABLET PO SCH ×3 (08:09→15:34)
[2017-06-19] MEDS: LEVOTHYROXINE SODIUM 75 MCG TABLET PO SCH (08:10)
[2017-06-19] MEDS: TRAMADOL HCL 50 MG TABLET PO SCH ×3 (08:10→17:22)
[2017-06-19] MEDS: ALBUTEROL SULFATE 2.5 MG/3 ML NEBU NEB PRN (08:24)
[2017-06-19] MEDS: HYDROMORPHONE 2 MG/1 ML DISP.SYRIN IV PRN ×3 (09:27→20:00)
[2017-06-19 11:22] VITALS: BP 146/65
[2017-06-19] MEDS: GUAIFENESIN/DEXTROMETHORPHAN 5 ML UDC PO PRN (12:06)
--- NOTE | 2017-06-19 12:29 | NUR ---
HELD PRANDIN 1MG AND WILL BE RETURNED TO [facility] DUE TO BS 59 AND PT GETTING DIALYSIS THEREFORE PT CANNOT EAT AT THIS TIME. PHARMACY NOTIFIED. DEXTROSE IV PUSH GIVEN, PER PROTOCOL. RENVELA HELD DUE TO PT UNABLE TO EAT AT THIS TIME. WILL BE GIVEN LATER WITH FOOD UPON COMPLETION OF DIALYSIS TX.
[2017-06-19 15:43] VITALS: BP 173/83
--- NOTE | 2017-06-19 19:00 | NUR ---
RECEIVED PATIENT IN BED, ALERT ORIENTED, LEFT UPPER ARM AV SHUNT INTACT, NO BLEEDING NOTED, NO SOB NO CHEST PAIN, NO S/S OF HYPO/HYPERGLYCEMIA NOTED, CALL LIGHT WITHIN REACH.
--- NOTE | 2017-06-19 19:07 | NUR ---
END OF SHIFT REPORT: PT IS LAYING IN BED. NO S/S OF PAIN NOTED. NO S/S OF RESPIRATORY DISTRESS NOTED. IV INTACT/PATENT. ALL SAFETY NEEDS ARE MET. NO S/S OF HYPOGLYCEMIA NOTED. DIALYSIS TREATMENT RECEIVED, NO S/S OF BLEEDING. AV SHUNT WNL.
[2017-06-19 20:00] VITALS: BP 160/77
[2017-06-19] MEDS: FLUTICASONE PROP NASAL SPRAY 16 GM BOTTLE NS SCH (20:03)
[2017-06-19] MEDS: MIRTAZAPINE 15 MG TABLET PO SCH (20:03)
[2017-06-19] MEDS: SIMVASTATIN 10 MG TABLET PO SCH (20:03)
[2017-06-19] MEDS: INSULIN DETEMIR 300 UNIT/3 ML CARTRIDGE SQ SCH (20:58)
[2017-06-19] MEDS: ZOLPIDEM 5 MG TABLET PO SCH (21:01)
--- NOTE | 2017-06-19 21:30 | NUR ---
PATIENT REFUSED LEVIMER INSULIN, STATED THAT "I DON'T NEED IT.. MY SUGAR GOES DOWN AT NIGHT". RESPECT PATIENT WISHES.
[2017-06-20] MEDS: HYDROMORPHONE 2 MG/1 ML DISP.SYRIN IV PRN ×5 (04:58→21:51)
--- NOTE | 2017-06-20 05:11 | NUR ---
PATIENT SLEPT MOST OF THE NIGHT, MEDICATED FOR PAIN ON BACK, GEN BODY PAIN, NO SOB NO CHEST PAIN, RA OXYGEN SAT WNL, AV SHUNT ON LEFT UPPER ARM, NO BLEEDING NOTED, CONT TO MONITOR.
[2017-06-20 05:56] VITALS: BP 167/77
[2017-06-20] MEDS: REPAGLINIDE 1 MG TABLET PO SCH ×3 (06:07→16:02)
[2017-06-20] MEDS: PANTOPRAZOLE SODIUM 40 MG TABLET.DR PO SCH (06:07)
[2017-06-20] MEDS: BLOOD SUGAR DIAGNOSTIC 1 EACH STRIP VI SCH ×4 (06:08→20:53)
--- NOTE | 2017-06-20 07:40 | NUR ---
PT RECEIVED IN BED SLEEPING.V/S ARE STABLE .BREAKFAST SERVED.
[2017-06-20] MEDS: LINAGLIPTIN 5 MG TABLET PO SCH (08:18)
[2017-06-20] MEDS: TRAMADOL HCL 50 MG TABLET PO SCH ×3 (08:18→16:02)
[2017-06-20] MEDS: SEVELAMER CARBONATE 800 MG TABLET PO SCH ×3 (08:18→17:13)
[2017-06-20] MEDS: LORATADINE 10 MG TABLET PO SCH (08:18)
[2017-06-20] MEDS: GABAPENTIN 300 MG CAPSULE PO SCH (08:18)
[2017-06-20] MEDS: LEVOTHYROXINE SODIUM 75 MCG TABLET PO SCH (08:18)
[2017-06-20] MEDS: ASPIRIN EC 81 MG TABLET.DR PO SCH (08:18)
[2017-06-20] MEDS: INSULIN REGULAR, HUMAN 300 UNIT/3 ML VIAL SQ PRN (10:57)
[2017-06-20 11:36] VITALS: BP 166/79
[2017-06-20] MEDS: CARVEDILOL 6.25 MG TABLET PO SCH ×2 (15:40→21:28)
[2017-06-20 15:48] VITALS: BP 150/76
--- NOTE | 2017-06-20 16:30 | NUR ---
PT BLOOD SUGAR IS 68 MD MADE AWARE .MILK AND GRAM CRACKER GIVEN TO THE PT.WE WILL RECHECK THE BLOOD SUGAR
--- NOTE | 2017-06-20 17:15 | NUR ---
RECHECK THE PT BLOOD SUGAR IS 74, MADE AWARE.
[2017-06-20 20:13] VITALS: BP 143/66
[2017-06-20] MEDS: ONDANSETRON 4 MG/2 ML VIAL IV PRN (20:53)
[2017-06-20] MEDS: INSULIN DETEMIR 300 UNIT/3 ML CARTRIDGE SQ SCH (21:00)
[2017-06-20] MEDS: ALBUTEROL SULFATE 2.5 MG/3 ML NEBU NEB PRN (21:03)
[2017-06-20] MEDS: ZOLPIDEM 5 MG TABLET PO SCH (21:27)
[2017-06-20] MEDS: MIRTAZAPINE 15 MG TABLET PO SCH (21:27)
[2017-06-20] MEDS: SIMVASTATIN 10 MG TABLET PO SCH (21:27)
[2017-06-20] MEDS: FLUTICASONE PROP NASAL SPRAY 16 GM BOTTLE NS SCH (21:31)
[2017-06-21] MEDS: HYDROMORPHONE 2 MG/1 ML DISP.SYRIN IV PRN ×5 (02:06→23:04)
[2017-06-21 04:23] VITALS: BP 149/70
[2017-06-21] MEDS: PANTOPRAZOLE SODIUM 40 MG TABLET.DR PO SCH (06:24)
[2017-06-21] MEDS: BLOOD SUGAR DIAGNOSTIC 1 EACH STRIP VI SCH ×4 (06:31→21:11)
[2017-06-21] MEDS: REPAGLINIDE 1 MG TABLET PO SCH ×3 (07:30→15:52)
--- NOTE | 2017-06-21 08:00 | NUR ---
RESTING QUIET NO SOB EAT BREAKFAST WELL PAIN UNDER CONTROL CALL LIGHT WITHIN REACH
[2017-06-21] MEDS: ASPIRIN EC 81 MG TABLET.DR PO SCH (08:09)
[2017-06-21] MEDS: SEVELAMER CARBONATE 800 MG TABLET PO SCH ×3 (08:09→17:03)
[2017-06-21] MEDS: LINAGLIPTIN 5 MG TABLET PO SCH (08:09)
[2017-06-21] MEDS: LORATADINE 10 MG TABLET PO SCH (08:09)
[2017-06-21] MEDS: GABAPENTIN 300 MG CAPSULE PO SCH (08:09)
[2017-06-21] MEDS: LEVOTHYROXINE SODIUM 75 MCG TABLET PO SCH (08:09)
[2017-06-21] MEDS: CARVEDILOL 6.25 MG TABLET PO SCH ×2 (08:09→21:04)
[2017-06-21] MEDS: TRAMADOL HCL 50 MG TABLET PO SCH ×3 (08:10→16:30)
[2017-06-21 11:02] VITALS: BP 131/82
[2017-06-21 11:03] VITALS: BP 141/71
[2017-06-21] MEDS: INSULIN REGULAR, HUMAN 300 UNIT/3 ML VIAL SQ PRN (11:44)
--- NOTE | 2017-06-21 12:00 | NUR ---
dialysis done at this time and as reported a total of 3.5 liters removed. Patient tolerated procedure well.
[2017-06-21 15:06] VITALS: BP 119/61
--- NOTE | 2017-06-21 17:52 | NUR ---
NO CHANGES NOTED. ALL SAFETY NEEDS ARE MET.
--- NOTE | 2017-06-21 19:30 | NUR ---
RECEIVED PATIENT LAYING IN BED COMFORTABLY. FAMILY AT BEDSIDE. A&OX'S 4. NOTED LEFT UPPER ARM FISTULA, PATENT AND INTACT. HL RIGHT WRIST #20. SAFETY INITIATED. CALL LIGHT WITHIN REACH. WILL CONTINUE TO MONITOR. WILL REVIEW MEDS AND WILL GIVE ORDERED.
[2017-06-21 20:00] VITALS: BP 110/74
[2017-06-21] MEDS: INSULIN DETEMIR 300 UNIT/3 ML CARTRIDGE SQ SCH (21:00)
[2017-06-21] MEDS: ZOLPIDEM 5 MG TABLET PO SCH (21:04)
[2017-06-21] MEDS: MIRTAZAPINE 15 MG TABLET PO SCH (21:04)
[2017-06-21] MEDS: SIMVASTATIN 10 MG TABLET PO SCH (21:04)
[2017-06-21] MEDS: FLUTICASONE PROP NASAL SPRAY 16 GM BOTTLE NS SCH (21:04)
--- NOTE | 2017-06-21 21:16 | NUR ---
PATIENT REFUSED LEVEMIR 7 UNITS. PATIENT STATES "I DO NOT WANT IT, MY BLOOD SUGAR WILL DROP, TRUST ME". BS 97.
[2017-06-22 04:49] VITALS: BP 130/61
[2017-06-22] MEDS: PANTOPRAZOLE SODIUM 40 MG TABLET.DR PO SCH (06:15)
[2017-06-22] MEDS: HYDROMORPHONE 2 MG/1 ML DISP.SYRIN IV PRN ×4 (06:16→22:24)
--- NOTE | 2017-06-22 06:30 | NUR ---
NO CHANGES T/O SHIFT. PATIENT SLEPT WELL T/O THE NIGHT 5-6 HOURS. ALL MEDS GIVEN ORDERED. ALL NEEDS MET.
[2017-06-22] MEDS: BLOOD SUGAR DIAGNOSTIC 1 EACH STRIP VI SCH ×4 (06:38→20:31)
[2017-06-22] MEDS: INSULIN REGULAR, HUMAN 300 UNIT/3 ML VIAL SQ PRN (07:12)
--- NOTE | 2017-06-22 07:54 | NUR ---
RECEIVED PATIENT SLEEPING IN BED COMFORTABLY. A&OX'S 4. NOTED LEFT UPPER ARM FISTULA, PATENT AND INTACT. HL RIGHT WRIST #20. SAFETY INITIATED. CALL LIGHT WITHIN REACH. WILL CONTINUE TO MONITOR. WILL REVIEW MEDS AND WILL GIVE ORDERED.
[2017-06-22] MEDS: LORATADINE 10 MG TABLET PO SCH (08:09)
[2017-06-22] MEDS: LINAGLIPTIN 5 MG TABLET PO SCH (08:09)
[2017-06-22] MEDS: REPAGLINIDE 1 MG TABLET PO SCH ×3 (08:09→16:43)
[2017-06-22] MEDS: LEVOTHYROXINE SODIUM 75 MCG TABLET PO SCH (08:09)
[2017-06-22] MEDS: SEVELAMER CARBONATE 800 MG TABLET PO SCH ×3 (08:09→17:02)
[2017-06-22] MEDS: GABAPENTIN 300 MG CAPSULE PO SCH (08:09)
[2017-06-22] MEDS: ASPIRIN EC 81 MG TABLET.DR PO SCH (08:10)
[2017-06-22] MEDS: CARVEDILOL 6.25 MG TABLET PO SCH ×2 (08:10→20:30)
[2017-06-22] MEDS: TRAMADOL HCL 50 MG TABLET PO SCH ×3 (08:10→16:43)
[2017-06-22 11:05] VITALS: BP 151/67
[2017-06-22 15:14] VITALS: BP 139/63
--- NOTE | 2017-06-22 17:47 | NUR ---
END OF SHIFT REPORT: PT IS LAYING IN BED. NO S/S OF RESPIRATORY DISTRESS NOTED. IV INTACT/PATENT.
--- NOTE | 2017-06-22 19:34 | NUR ---
RECEIVED PATIENT SITTING UP COMFORTABLY IN BED. NO ACUTE DISTRESS NOTED. REPORTS NO PAIN. A&O X'S 4. ABLE TO MAKE NEEDS KNOWN. SAFETY INITIATED. CALL LIGHT WITHIN REACH. WILL REVIEW MEDS. WILL GIVE MEDS ORDERED. WILL CONTINUE TO MONITOR.
[2017-06-22 19:54] VITALS: BP 143/69
[2017-06-22] MEDS: SIMVASTATIN 10 MG TABLET PO SCH (20:29)
[2017-06-22] MEDS: ZOLPIDEM 5 MG TABLET PO SCH (20:30)
[2017-06-22] MEDS: MIRTAZAPINE 15 MG TABLET PO SCH (20:30)
[2017-06-22] MEDS: FLUTICASONE PROP NASAL SPRAY 16 GM BOTTLE NS SCH (20:32)
[2017-06-22] MEDS: INSULIN DETEMIR 300 UNIT/3 ML CARTRIDGE SQ SCH (20:34)
--- NOTE | 2017-06-22 20:45 | NUR ---
PATIENT REFUSED LEVEMIR. HIS BLOOD SUGAR WAS AT 98. HE STATES "WITH MY BLOOD SUGAR LIKE THAT, I DON'T WANT TO TAKE INSULIN".
[2017-06-23 04:12] VITALS: BP 157/77
[2017-06-23] MEDS: HYDROMORPHONE 2 MG/1 ML DISP.SYRIN IV PRN ×5 (05:21→23:08)
--- NOTE | 2017-06-23 05:48 | NUR ---
PATIENT SLEPT MOST OF THE NIGHT, NO SOB NO CHEST PAIN, CONT ON PAIN MANAGEMENT, NO S/S OF HYPO/HYPERGLYCEMIA NOTED, CALL LIGHT WITHIN REACH.
[2017-06-23] MEDS: BLOOD SUGAR DIAGNOSTIC 1 EACH STRIP VI SCH ×4 (06:04→21:03)
[2017-06-23] MEDS: PANTOPRAZOLE SODIUM 40 MG TABLET.DR PO SCH (06:04)
[2017-06-23] MEDS: REPAGLINIDE 1 MG TABLET PO SCH ×3 (06:09→17:11)
[2017-06-23] MEDS: GABAPENTIN 300 MG CAPSULE PO SCH (08:33)
[2017-06-23] MEDS: LORATADINE 10 MG TABLET PO SCH (08:33)
[2017-06-23] MEDS: LINAGLIPTIN 5 MG TABLET PO SCH (08:33)
[2017-06-23] MEDS: ASPIRIN EC 81 MG TABLET.DR PO SCH (08:33)
[2017-06-23] MEDS: SEVELAMER CARBONATE 800 MG TABLET PO SCH ×4 (08:33→18:01)
[2017-06-23] MEDS: LEVOTHYROXINE SODIUM 75 MCG TABLET PO SCH (08:33)
[2017-06-23] MEDS: CARVEDILOL 6.25 MG TABLET PO SCH ×2 (08:34→20:58)
[2017-06-23] MEDS: TRAMADOL HCL 50 MG TABLET PO SCH ×3 (08:34→16:46)
[2017-06-23] MEDS: AMLODIPINE 5 MG TABLET PO SCH ×2 (11:15→14:21)
[2017-06-23 11:21] LABS: EOSINOPHILS # (AUTO) 0.1 K/uL (0.0-0.7); EOSINOPHILS % (AUTO) 1.1 % (0.0-7.0); HEMATOCRIT 30.3 % (40-50); HEMOGLOBIN 10.1 G/DL (14.0-18.0); LYMPHOCYTES # (AUTO) 1.4 K/UL (0.8-4.8); LYMPHOCYTES % (AUTO) 30.8 % (20.5-51.5); MEAN CORPUSCULAR HEMOGLOBIN 30.7 UUG (27.0-31.0); MEAN CORPUSCULAR HGB CONC 33 g/dL (32.0-37.0); MONOCYTES # (AUTO) 0.6 K/UL (0.1-1.30); MONOCYTES % (AUTO) 13.3 % (0.0-11.0); NEUTROPHILS # (AUTO) 2.5 K/UL (1.8-8.9); NEUTROPHILS % (AUTO) 53.8 % (38.5-71.5); PLATELET COUNT (AUTO) 119 K/UL (150-450); RED BLOOD CELL COUNT(AUTO) 3.29 MIL/UL (4.7-6.1); WHITE BLOOD COUNT (AUTO) 4.6 K/UL (4.0-11.2)
[2017-06-23 11:24] LABS: POTASSIUM 5.5 mmol/L (3.5-5.1)
[2017-06-23 11:25] VITALS: BP 145/75
--- NOTE | 2017-06-23 11:35 | NUR ---
prandin i s held due tp pt getting dialysis and unable to eat, Norvasc is held due pt getting dialysis
[2017-06-23 11:40] LABS: CREATININE 9.7 mg/dL (0.6-1.3)
--- NOTE | 2017-06-23 12:00 | NUR ---
PT RECEIVED DIALYSIS, 2500 ML OUT. NO S/S OF BLEEDING NOTED. NO S/S OF RESPIRATORY DISTRESS NOTED.
[2017-06-23 16:06] VITALS: BP 145/62
[2017-06-23] MEDS: INSULIN REGULAR, HUMAN 300 UNIT/3 ML VIAL SQ PRN (17:07)
--- NOTE | 2017-06-23 19:06 | NUR ---
PT IS LAYING IN BED COMFORTABLY. NO S/S OF RESPIRATORY DISTRESS NOTED. NO PAIN NOTED. ALL SAFETY NEEDS ARE MET. IV INTACT/PATENT. NO S/S OF BLEEDING NOTED. NO S/S OF HYPOGLYCEMIA.
[2017-06-23 19:35] VITALS: BP 160/72
[2017-06-23] MEDS: SIMVASTATIN 10 MG TABLET PO SCH (20:56)
[2017-06-23] MEDS: ZOLPIDEM 5 MG TABLET PO SCH (20:57)
[2017-06-23] MEDS: MIRTAZAPINE 15 MG TABLET PO SCH (20:57)
[2017-06-23] MEDS: INSULIN DETEMIR 300 UNIT/3 ML CARTRIDGE SQ SCH (21:00)
[2017-06-23] MEDS: FLUTICASONE PROP NASAL SPRAY 16 GM BOTTLE NS SCH (21:00)
[2017-06-24] MEDS: HYDROMORPHONE 2 MG/1 ML DISP.SYRIN IV PRN ×4 (04:01→21:32)
--- NOTE | 2017-06-24 04:58 | NUR ---
PATIENT SLEPT MOST OF THE NIGHT, NO SOB NO CHEST PAIN, CONT ON PAIN MANAGEMENT, NO S/S OF HYPO/HYPERGLYCEMIA NOTED, REFUSED LEVIMER INSULIN, STATED "HE AFRAID TO GET HIS BLOOD SUGAR TO GO DOWN SO LOW." RESPECT PATIENT REQUEST, CALL LIGHT WITHIN REACH. CONT TO MONITOR.
[2017-06-24 05:14] VITALS: BP 156/70
[2017-06-24] MEDS: BLOOD SUGAR DIAGNOSTIC 1 EACH STRIP VI SCH ×5 (06:11→20:39)
[2017-06-24] MEDS: REPAGLINIDE 1 MG TABLET PO SCH ×3 (06:11→17:16)
[2017-06-24] MEDS: PANTOPRAZOLE SODIUM 40 MG TABLET.DR PO SCH (06:11)
[2017-06-24] MEDS: SEVELAMER CARBONATE 800 MG TABLET PO SCH ×3 (08:24→17:17)
[2017-06-24] MEDS: LORATADINE 10 MG TABLET PO SCH (10:11)
[2017-06-24] MEDS: ASPIRIN EC 81 MG TABLET.DR PO SCH (10:13)
[2017-06-24] MEDS: CARVEDILOL 6.25 MG TABLET PO SCH ×2 (10:13→20:37)
[2017-06-24] MEDS: AMLODIPINE 5 MG TABLET PO SCH (10:13)
[2017-06-24] MEDS: GABAPENTIN 300 MG CAPSULE PO SCH (10:13)
[2017-06-24] MEDS: LINAGLIPTIN 5 MG TABLET PO SCH (10:14)
[2017-06-24] MEDS: LEVOTHYROXINE SODIUM 75 MCG TABLET PO SCH (10:14)
[2017-06-24] MEDS: TRAMADOL HCL 50 MG TABLET PO SCH ×3 (10:15→17:17)
[2017-06-24 11:40] VITALS: BP 143/67
[2017-06-24] MEDS: INSULIN REGULAR, HUMAN 300 UNIT/3 ML VIAL SQ PRN (12:24)
[2017-06-24] MEDS ORDERED: AMLODIPINE 2.5 MG TABLET PO ONE (13:00)
[2017-06-24 15:48] VITALS: BP 146/66
--- NOTE | 2017-06-24 19:00 | NUR ---
RECEIVED PATIENT IN BED, ALERT ORIENTED, NO SOB, NO CHEST PAIN NOTED, CONT ON PAIN MANAGEMENT OF ABDOMEN, NO NAUSEA NO VOMITING NOTED, AV SHUN LEFT UPPER ARM INTACT, NO BLEEDING NOTED. CONT TO MONITOR.
[2017-06-24] MEDS: MIRTAZAPINE 15 MG TABLET PO SCH (20:37)
[2017-06-24] MEDS: SIMVASTATIN 10 MG TABLET PO SCH (20:37)
[2017-06-24] MEDS: FLUTICASONE PROP NASAL SPRAY 16 GM BOTTLE NS SCH (20:37)
[2017-06-24 20:38] VITALS: BP 159/78
[2017-06-24] MEDS: INSULIN DETEMIR 300 UNIT/3 ML CARTRIDGE SQ SCH (20:39)
[2017-06-25] MEDS: HYDROMORPHONE 2 MG/1 ML DISP.SYRIN IV PRN ×6 (01:38→22:13)
[2017-06-25 04:00] VITALS: BP 179/86
--- NOTE | 2017-06-25 04:50 | NUR ---
PATIENT SLEPT MOST OF THE NIGHT, CONT ON PAIN MANAGEMENT, NO SOB NO CHEST PAIN NOTED, CALL LIGHT WITHIN REACH.
--- NOTE | 2017-06-25 04:55 | NUR ---
PATIENT BLOOD SUGAR IS ON THE LOW SIDE, PATIENT REFUSED LEVIMER, AND SLIDING SCALE INSULIN WHEN NEEDED COVERAGE, PATIENT REFUSED PRANDIN ALSO, STATED "HE DONT NEED ALL THIS MEDICATION TO LOWER MY BLOOD SUGAR", MD AWARE OF REFUSAL OF THE MEDICATIONS.
[2017-06-25] MEDS: PANTOPRAZOLE SODIUM 40 MG TABLET.DR PO SCH (06:09)
[2017-06-25] MEDS: REPAGLINIDE 1 MG TABLET PO SCH ×3 (06:11→17:23)
[2017-06-25] MEDS: BLOOD SUGAR DIAGNOSTIC 1 EACH STRIP VI SCH ×4 (06:15→21:19)
[2017-06-25] MEDS: ONDANSETRON 4 MG/2 ML VIAL IV PRN (07:43)
[2017-06-25] MEDS: ALBUTEROL SULFATE 2.5 MG/3 ML NEBU NEB PRN (07:57)
--- NOTE | 2017-06-25 07:57 | NUR ---
Awake, alert, oriented x 4, on moderate high back rest, on Bipap. Noted vomiting. Zofran IV given. Complained of shortness of breath. HHN given.
[2017-06-25] MEDS: LORATADINE 10 MG TABLET PO SCH (10:44)
[2017-06-25] MEDS: SEVELAMER CARBONATE 800 MG TABLET PO SCH ×3 (10:44→17:23)
[2017-06-25] MEDS: CARVEDILOL 6.25 MG TABLET PO SCH (10:45)
--- NOTE | 2017-06-25 10:45 | NUR ---
Hemodialysis done with 3L output. Breakfast served.Medications given
[2017-06-25] MEDS: LEVOTHYROXINE SODIUM 75 MCG TABLET PO SCH (10:46)
[2017-06-25] MEDS: AMLODIPINE 5 MG TABLET PO SCH (10:46)
[2017-06-25] MEDS: GABAPENTIN 300 MG CAPSULE PO SCH (10:46)
[2017-06-25] MEDS: ASPIRIN EC 81 MG TABLET.DR PO SCH (10:46)
[2017-06-25] MEDS: LINAGLIPTIN 5 MG TABLET PO SCH (10:47)
[2017-06-25] MEDS: TRAMADOL HCL 50 MG TABLET PO SCH ×3 (10:48→17:23)
[2017-06-25 11:34] VITALS: BP 152/70
[2017-06-25] MEDS: INSULIN REGULAR, HUMAN 300 UNIT/3 ML VIAL SQ PRN (12:20)
--- NOTE | 2017-06-25 14:18 | NUR ---
Complained of back pain. Dilaudid IV given as ordered. Resting after
[2017-06-25 15:52] VITALS: BP 147/69
[2017-06-25 20:22] VITALS: BP 149/71
[2017-06-25] MEDS: INSULIN DETEMIR 300 UNIT/3 ML CARTRIDGE SQ SCH (21:00)
[2017-06-25] MEDS: SIMVASTATIN 10 MG TABLET PO SCH (21:10)
[2017-06-25] MEDS: MIRTAZAPINE 15 MG TABLET PO SCH (21:11)
[2017-06-25] MEDS: hydrALAZINE HCL 25 MG TABLET PO SCH (21:12)
[2017-06-25] MEDS: FLUTICASONE PROP NASAL SPRAY 16 GM BOTTLE NS SCH (21:13)
--- NOTE | 2017-06-25 21:50 | NUR ---
RECEIVED PATIENT AWAKE AND COMFORTABLE IN BED. BLOOD SUGAR AT 2117 IS LOW AT 59 MG/DL. REPEAT ACUCHECK 64 MG/DL. PATIENT EATING AT THE MOMENT.
[2017-06-26 04:00] VITALS: BP 134/65
[2017-06-26] MEDS: PANTOPRAZOLE SODIUM 40 MG TABLET.DR PO SCH (06:09)
[2017-06-26] MEDS: HYDROMORPHONE 2 MG/1 ML DISP.SYRIN IV PRN ×3 (06:21→19:43)
--- NOTE | 2017-06-26 06:28 | NUR ---
COMPLAINT OF LOWER BACK PAIN GIVEN IV DILAUDID AT 0625HRS. BLOOD SUGAR IS 67 MG/DL GIVEN SNACKS.
[2017-06-26] MEDS: BLOOD SUGAR DIAGNOSTIC 1 EACH STRIP VI SCH ×4 (06:43→21:19)
[2017-06-26] MEDS: REPAGLINIDE 1 MG TABLET PO SCH ×3 (07:30→16:05)
--- NOTE | 2017-06-26 07:35 | NUR ---
PT RECEIVED IN BED SLEEPING.Awake, alert, oriented x 4, on moderate high back rest, on Bipap.
[2017-06-26] MEDS: hydrALAZINE HCL 25 MG TABLET PO SCH ×2 (08:15→21:10)
[2017-06-26] MEDS: SEVELAMER CARBONATE 800 MG TABLET PO SCH ×3 (08:15→17:25)
[2017-06-26] MEDS: GABAPENTIN 300 MG CAPSULE PO SCH (08:15)
[2017-06-26] MEDS: LEVOTHYROXINE SODIUM 75 MCG TABLET PO SCH (08:16)
[2017-06-26] MEDS: LORATADINE 10 MG TABLET PO SCH (08:16)
[2017-06-26] MEDS: CARVEDILOL 6.25 MG TABLET PO SCH ×2 (08:16→21:15)
[2017-06-26] MEDS: AMLODIPINE 5 MG TABLET PO SCH (08:16)
[2017-06-26] MEDS: ASPIRIN EC 81 MG TABLET.DR PO SCH (08:16)
[2017-06-26] MEDS: LINAGLIPTIN 5 MG TABLET PO SCH (08:16)
[2017-06-26] MEDS: TRAMADOL HCL 50 MG TABLET PO SCH ×3 (08:16→16:07)
--- NOTE | 2017-06-26 10:43 | NUR ---
Complained of back pain. Dilaudid IV given as ordered. Resting after
[2017-06-26 11:44] VITALS: BP 122/54
[2017-06-26 15:32] VITALS: BP 129/62
[2017-06-26] MEDS: INSULIN REGULAR, HUMAN 300 UNIT/3 ML VIAL SQ PRN (16:04)
[2017-06-26] MEDS: ALBUTEROL SULFATE 2.5 MG/3 ML NEBU NEB PRN (17:30)
--- NOTE | 2017-06-26 17:43 | NUR ---
PT FEELING SOB ,BREATHING TREATMENT GIVEN PER MD ORDERS.
[2017-06-26 19:00] VITALS: BP 136/69
[2017-06-26] MEDS: INSULIN DETEMIR 300 UNIT/3 ML CARTRIDGE SQ SCH (21:00)
[2017-06-26] MEDS: FLUTICASONE PROP NASAL SPRAY 16 GM BOTTLE NS SCH (21:09)
[2017-06-26] MEDS: SIMVASTATIN 10 MG TABLET PO SCH (21:10)
[2017-06-26] MEDS: MIRTAZAPINE 15 MG TABLET PO SCH (21:10)
--- NOTE | 2017-06-26 23:55 | NUR ---
RECEIVED PATIENT COMPLAINING OF LOWER BACK PAIN IN BED 07/14 GIVEN PRN IV DILAUDID PER ORDERED. VS ARE STABLE. BLOOD SUGAR HS I S105 , PATIENT REFUSED NIGHT DOSE OF LEVEMIR, NOT ADMINISTERED. ON CPAP AT THIS TIME. NO SIGNS OF RESPIRATORY DISTRESS. WILL CONT TO MONITOR.
[2017-06-27] MEDS: HYDROMORPHONE 2 MG/1 ML DISP.SYRIN IV PRN ×5 (00:16→21:07)
[2017-06-27 05:00] VITALS: BP 106/70
--- NOTE | 2017-06-27 05:04 | NUR ---
GIVEN ANOTHER DOSE OF IV DILAUDID AT AROUND 0420. PATIENT IS COMPLAINING OF SOB, NOTED TO RT ON DUTY CHECKED CPAP MACHINE, CONNECTED TO O2 AT 3L. OTHERWISE PATIENT IS COMFORTABLE AT THIS TIME.
[2017-06-27] MEDS: PANTOPRAZOLE SODIUM 40 MG TABLET.DR PO SCH (06:00)
[2017-06-27] MEDS: BLOOD SUGAR DIAGNOSTIC 1 EACH STRIP VI SCH ×4 (06:32→20:56)
[2017-06-27] MEDS: REPAGLINIDE 1 MG TABLET PO SCH ×3 (07:30→16:11)
--- NOTE | 2017-06-27 07:35 | NUR ---
PT RECEIVED IN BED SLEEPING.Awake, alert, oriented x 4, on moderate high back rest, on Bipap.
[2017-06-27] MEDS: SEVELAMER CARBONATE 800 MG TABLET PO SCH ×3 (07:59→17:39)
[2017-06-27] MEDS: AMLODIPINE 5 MG TABLET PO SCH (08:00)
[2017-06-27] MEDS: ASPIRIN EC 81 MG TABLET.DR PO SCH (08:00)
[2017-06-27] MEDS: GABAPENTIN 300 MG CAPSULE PO SCH (08:00)
[2017-06-27] MEDS: LORATADINE 10 MG TABLET PO SCH (08:00)
[2017-06-27] MEDS: LEVOTHYROXINE SODIUM 75 MCG TABLET PO SCH (08:00)
[2017-06-27] MEDS: CARVEDILOL 6.25 MG TABLET PO SCH ×2 (08:01→20:55)
[2017-06-27] MEDS: LINAGLIPTIN 5 MG TABLET PO SCH (08:01)
[2017-06-27] MEDS: TRAMADOL HCL 50 MG TABLET PO SCH ×3 (08:02→16:11)
[2017-06-27] MEDS: hydrALAZINE HCL 25 MG TABLET PO SCH ×2 (08:27→20:55)
[2017-06-27 12:00] VITALS: BP 127/64
--- NOTE | 2017-06-27 12:22 | NUR ---
Hemodialysis done with 2.5L output. LUNCH served.Medications given
[2017-06-27 16:12] VITALS: BP 114/55
--- NOTE | 2017-06-27 17:00 | NUR ---
Had been in contact with DON Galindo from [facility] [ , who was covering for Estephania [ ]. She stated recommended for the patient to change his [facility] coverage from [facility] to [facility]. She also added that their D/C Lab Manager is Trisha [ ]. Faxed the patient's information to the following facilities: [facility] - - [phone] [facility] [place] - - [phone] [facility] [place] - - [phone] [facility] - - [phone] [facility] - [phone] - [phone] [facility] - - [phone] [facility] - - [phone] [facility] - - [phone] [facility] - - [phone] [facility] - - [phone] [facility] - - [phone] [facility] - - [phone] [facility] - - [phone] [facility] - - [phone] [facility] - - [phone] [facility] - - [phone] [facility] - - [phone] [facility] - - [phone] [facility] - - [phone] [facility] - - [phone] [facility] - - [phone] [facility] - - [phone] [facility] - - [phone] [facility] - - [phone] [facility] - - [phone] - [phone] [facility] - - [phone] - [phone] [facility] - - [phone] [facility] - - [phone] [facility] - - [phone] [facility] - - [phone] [place] - - [phone] [facility] - -
--- NOTE | 2017-06-27 18:07 | NUR ---
NO CHANGES NOTED. ALL SAFETY NEEDS ARE MET.
[2017-06-27 19:49] VITALS: BP 123/66
[2017-06-27] MEDS: MIRTAZAPINE 15 MG TABLET PO SCH (20:54)
[2017-06-27] MEDS: SIMVASTATIN 10 MG TABLET PO SCH (20:54)
[2017-06-27] MEDS: INSULIN DETEMIR 300 UNIT/3 ML CARTRIDGE SQ SCH (20:56)
[2017-06-27] MEDS: FLUTICASONE PROP NASAL SPRAY 16 GM BOTTLE NS SCH (20:59)
--- NOTE | 2017-06-27 23:10 | NUR ---
RECEIVED PATIENT AWAKE AND COMFORTABLE, ON HIS OWN CPAP MACHINE NO SOB. GIVEN IV DILAUDID ORDERED FOR COMPLAINT OF BACK PAIN. BLOOD SUGAR IS STABLE AT 118 MG/DL, REFUSED LANTUS. OTHERWISE PATIENT IS SLEEPING AT THIS TIME, WILL CONT TO MONITOR.
[2017-06-28] MEDS: HYDROMORPHONE 2 MG/1 ML DISP.SYRIN IV PRN ×5 (01:16→22:01)
[2017-06-28 05:06] VITALS: BP 142/65
[2017-06-28] MEDS: PANTOPRAZOLE SODIUM 40 MG TABLET.DR PO SCH (06:08)
--- NOTE | 2017-06-28 06:11 | NUR ---
PATIENT HAD PAIN MEDS AT 0611 HRS FOR BACK PAIN.
--- NOTE | 2017-06-28 06:16 | NUR ---
END OF SHIFT NIGHT REPORT. PATIENT SLEPT INTERMITTENTLY WITH OCCASIONAL PAIN. ON CPAP THROUGH OUT THE NIGHT. VS ARE STABLE. MAINTAINED SAFETY.
[2017-06-28] MEDS: BLOOD SUGAR DIAGNOSTIC 1 EACH STRIP VI SCH ×4 (06:33→21:08)
[2017-06-28] MEDS: REPAGLINIDE 1 MG TABLET PO SCH ×3 (07:30→16:02)
--- NOTE | 2017-06-28 07:30 | NUR ---
PT RECEIVED IN BED SLEEPING.Awake, alert, oriented x 4, on moderate high back rest, on Bipap.
[2017-06-28] MEDS: SEVELAMER CARBONATE 800 MG TABLET PO SCH ×3 (07:49→17:21)
[2017-06-28] MEDS: LORATADINE 10 MG TABLET PO SCH (08:00)
[2017-06-28] MEDS: AMLODIPINE 5 MG TABLET PO SCH (08:00)
[2017-06-28] MEDS: GABAPENTIN 300 MG CAPSULE PO SCH (08:00)
[2017-06-28] MEDS: hydrALAZINE HCL 25 MG TABLET PO SCH ×2 (08:00→21:09)
[2017-06-28] MEDS: ASPIRIN EC 81 MG TABLET.DR PO SCH (08:00)
[2017-06-28] MEDS: LINAGLIPTIN 5 MG TABLET PO SCH (08:00)
[2017-06-28] MEDS: LEVOTHYROXINE SODIUM 75 MCG TABLET PO SCH (08:01)
[2017-06-28] MEDS: CARVEDILOL 6.25 MG TABLET PO SCH ×2 (08:01→21:08)
[2017-06-28] MEDS: TRAMADOL HCL 50 MG TABLET PO SCH ×3 (08:01→16:02)
[2017-06-28 11:05] VITALS: BP 145/69
--- NOTE | 2017-06-28 12:00 | NUR ---
PT FEELING SOB ,BREATHING TREATMENT GIVEN PER MD ORDERS.
[2017-06-28] MEDS: ALBUTEROL SULFATE 2.5 MG/3 ML NEBU NEB PRN (14:40)
[2017-06-28 15:16] VITALS: BP 141/69
--- NOTE | 2017-06-28 19:30 | NUR ---
Report received. Patient AAO, with visitors, mildly SOB on CPAP but talkative. Addendum: 06/28/17 at 2234 by REEMA DURAN RN Amended: Links added. Addendum: 06/28/17 at 2237 by REEMA DURAN RN Amended: Links added. Addendum: 06/28/17 at 2241 by REEMA DURAN RN Amended: Links added. Addendum: 06/28/17 at 2243 by REEMA DURAN RN Amended: Links added.
[2017-06-28 20:00] VITALS: BP 166/80
--- NOTE | 2017-06-28 20:40 | NUR ---
Spoke to Dr. Allison re: BIPAP. Patient continues to be SOB with his own CPAP machine which he claims is broken. Requesting use of [facility]'s BIPAP. Orders received from . Addendum: 06/28/17 at 223 by REEMA DURAN RN Amended: Links added. Addendum: 06/28/17 at 224 by REEMA DURAN RN Amended: Links added. Addendum: 06/28/17 at 2243 by REEMA DURAN RN Amended: Links added.
[2017-06-28] MEDS ORDERED: LORAZEPAM 0.5 MG TABLET PO PRN (20:45)
[2017-06-28 21:00] VITALS: BP 170/80
[2017-06-28] MEDS: FLUTICASONE PROP NASAL SPRAY 16 GM BOTTLE NS SCH (21:00)
[2017-06-28] MEDS: INSULIN DETEMIR 300 UNIT/3 ML CARTRIDGE SQ SCH (21:00)
--- NOTE | 2017-06-28 21:00 | NUR ---
Ltqzwfyek=[id number]. Patient refused Levemir dose for tonight. Anxious; medicated with Ativan. Addendum: 06/28/17 at 2241 by REEMA DURAN RN Amended: Links added. Addendum: 06/28/17 at 2243 by REEMA DURAN RN Amended: Links added.
[2017-06-28] MEDS: SIMVASTATIN 10 MG TABLET PO SCH (21:07)
[2017-06-28] MEDS: MIRTAZAPINE 15 MG TABLET PO SCH (21:08)
--- NOTE | 2017-06-28 22:00 | NUR ---
Respiration improved on BIPAP and patient claims he's feeling better. Medicated with Dilaudid for pain. Addendum: 06/28/17 at 2243 by REEMA DURAN RN Amended: Links added.
[2017-06-28 22:15] VITALS: BP 147/70
[2017-06-29] MEDS: HYDROMORPHONE 2 MG/1 ML DISP.SYRIN IV PRN ×4 (03:09→18:46)
[2017-06-29 04:53] VITALS: BP 137/62
[2017-06-29] MEDS: PANTOPRAZOLE SODIUM 40 MG TABLET.DR PO SCH (06:13)
[2017-06-29] MEDS: BLOOD SUGAR DIAGNOSTIC 1 EACH STRIP VI SCH ×3 (06:51→16:31)
--- NOTE | 2017-06-29 08:34 | NUR ---
Came into to assess and make rounds on patient, patient very tired and difficult arouse, patient states, " not yet" then continues to sleep. Patient not eating at this time, will reassess in 30 minutes and give hypoglycemics as ordered, will coordinate care with [facility].
[2017-06-29] MEDS: LORATADINE 10 MG TABLET PO SCH (09:04)
[2017-06-29] MEDS: GABAPENTIN 300 MG CAPSULE PO SCH (09:05)
[2017-06-29] MEDS: TRAMADOL HCL 50 MG TABLET PO SCH ×3 (09:05→17:22)
[2017-06-29] MEDS: REPAGLINIDE 1 MG TABLET PO SCH ×3 (09:05→17:22)
[2017-06-29] MEDS: ASPIRIN EC 81 MG TABLET.DR PO SCH (09:06)
[2017-06-29] MEDS: LEVOTHYROXINE SODIUM 75 MCG TABLET PO SCH (09:06)
[2017-06-29] MEDS: LINAGLIPTIN 5 MG TABLET PO SCH (09:06)
[2017-06-29] MEDS: CARVEDILOL 6.25 MG TABLET PO SCH (09:06)
[2017-06-29] MEDS: AMLODIPINE 5 MG TABLET PO SCH (09:06)
[2017-06-29] MEDS: hydrALAZINE HCL 25 MG TABLET PO SCH (09:07)
[2017-06-29] MEDS: SEVELAMER CARBONATE 800 MG TABLET PO SCH ×3 (09:07→17:22)
[2017-06-29] MEDS: INSULIN REGULAR, HUMAN 300 UNIT/3 ML VIAL SQ PRN ×3 (09:10→16:32)
[2017-06-29 11:20] VITALS: BP 142/74
--- NOTE | 2017-06-29 12:40 | NUR ---
Patient currently sleeping. Not interested in eating at this time. Will give insulin and oral hypoglycemics when patient able to eat. Having dialysis at this time.
[2017-06-29 15:19] VITALS: BP 133/63
[2017-06-29 20:27] VITALS: BP 159/72
--- NOTE | 2017-06-29 21:00 | NUR ---
Patient is in stable condition. Paramedics are here to pharmacy picking tech the patient. Had to call for back up for patient's wheelchair. Patient's IV line removed. Left with the paramedics on the [facility] at 2057. Discharged to [facility].
== END 2017-06-29 20:58 | DRG 391 ==
LOC: ER 13:34 → CCU 16:36 → TELE 06-14 14:02 → MED 06-15 17:01
PROVIDERS: ADMIT Internal Medicine; ATTEND Internal Medicine
PROC: 5A09357 Assistance with Respiratory Ventilation, Less than 24 Consecutive Hours, Continuous Positive Airway Pressure (ICD-10-PCS; 2017-06-10)
PROC: 5A09457 Assistance with Respiratory Ventilation, 24-96 Consecutive Hours, Continuous Positive Airway Pressure (ICD-10-PCS; 2017-06-11)
PROC: 5A1D60Z (ICD-10-PCS; 2017-06-11)
PROC: 0DBL8ZX Excision of Transverse Colon, Via Natural or Artificial Opening Endoscopic, Diagnostic (ICD-10-PCS; 2017-06-13)
PROC: 0DB78ZX Excision of Stomach, Pylorus, Via Natural or Artificial Opening Endoscopic, Diagnostic (ICD-10-PCS; principal; 2017-06-13 12:20)
PROC: 0DBK8ZX Excision of Ascending Colon, Via Natural or Artificial Opening Endoscopic, Diagnostic (ICD-10-PCS; 2017-06-13 12:20)
DX: K52.3 Indeterminate colitis (principal); I21.4 Non-ST elevation (NSTEMI) myocardial infarction; N18.6 End stage renal disease; T86.12 Kidney transplant failure; Z94.0 Kidney transplant status; K25.9 Gastric ulcer, unspecified as acute or chronic, without hemorrhage or perforation; E11.22 Type 2 diabetes mellitus with diabetic chronic kidney disease; Z90.5 Acquired absence of kidney; Z99.2 Dependence on renal dialysis; Z79.4 Long term (current) use of insulin; Z79.84 Long term (current) use of oral hypoglycemic drugs; Z59.0 Homelessness; Z79.899 Other long term (current) drug therapy; D63.1 Anemia in chronic kidney disease; E66.01 Morbid (severe) obesity due to excess calories; Z68.39 Body mass index [BMI] 39.0-39.9, adult; Z71.3 Dietary counseling and surveillance; Z95.5 Presence of coronary angioplasty implant and graft; E11.40 Type 2 diabetes mellitus with diabetic neuropathy, unspecified; E11.649 Type 2 diabetes mellitus with hypoglycemia without coma; G47.33 Obstructive sleep apnea (adult) (pediatric); J45.909 Unspecified asthma, uncomplicated; E78.5 Hyperlipidemia, unspecified; K21.9 Gastro-esophageal reflux disease without esophagitis; K44.9 Diaphragmatic hernia without obstruction or gangrene; Z85.528 Personal history of other malignant neoplasm of kidney; K64.8 Other hemorrhoids; Z79.891 Long term (current) use of opiate analgesic; D12.2 Benign neoplasm of ascending colon; K63.5 Polyp of colon; K57.90 Diverticulosis of intestine, part unspecified, without perforation or abscess without bleeding; K29.70 Gastritis, unspecified, without bleeding; G89.29 Other chronic pain; E83.39 Other disorders of phosphorus metabolism
CPT/HCPCS: 36415; 43235; 70030-TC; 71010; 71275; 83605; 83690; 83735; 84100; 85025; 86706; 86803; 87040; 87340; 90937; 93005; 93307; 94640; 94660; 94664; 97110; 97116; 97530; A4217; A4663; J1170; J1815; J2405; J3490; J3535; J7030; J7040; J7050; P9047; Q9967